=== PATIENT | female | born 1950 | race Caucasian/White ===

== ENCOUNTER → 2017-03-19 | Outpatient (CLI) | payer MEDICARE ==
[2017-03-19 10:34] LABS: ALANINE AMINOTRANSFERASE 41 U/L (9-52); ALBUMIN 4.3 g/dL (3.5-5.0); ALKALINE PHOSPHATASE 94 U/L (38-126); ASPARTATE AMINO TRANSFERASE 22 U/L (14-36); BILIRUBIN,DIRECT 0.4 mg/dL (0.0-0.4); BILIRUBIN,TOTAL 0.5 mg/dL (0.2-1.3); CHOLESTEROL 269.27 mg/dL (0-200); Direct HDL 54 mg/dL (>40); TOTAL PROTEIN 7.1 g/dL (6.3-8.2); TRIGLYCERIDES 254 mg/dL (<150)
[2017-03-19 10:46] LABS: DIRECT LDL 179 mg/dL (<100)
[2017-03-19 10:48] LABS: VLDL CHOLESTEROL 50.8 mg/dL (10-31)
== END ==
LOC: OD 09:06
PROVIDERS: ATTEND Internal Medicine Cardiovascular Disease
DX: E55.9 Vitamin D deficiency, unspecified (principal); E78.00 Pure hypercholesterolemia, unspecified; Z79.899 Other long term (current) drug therapy
CPT/HCPCS: 36415; 80061; 80076; 82306

== ENCOUNTER → 2017-05-20 | Outpatient (CLI) | payer MEDICARE ==
[2017-05-20 10:26] LABS: CHOLESTEROL 191.75 mg/dL (0-200); Direct HDL 54 mg/dL (>40); TRIGLYCERIDES 134 mg/dL (<150)
[2017-05-20 10:43] LABS: DIRECT LDL 114 mg/dL (<100)
== END ==
LOC: OD 08:56
PROVIDERS: ATTEND Internal Medicine Cardiovascular Disease
DX: E78.2 Mixed hyperlipidemia (principal)
CPT/HCPCS: 36415; 80061

== ENCOUNTER → 2017-07-02 | Outpatient (CLI) | payer MEDICARE ==
--- NOTE | 2017-07-02 16:38 | WOMENS IMAGING REPORT ---
EXAM DESCRIPTION: 3D SCREENING MAMMO BILAT COMPLETED DATE/TIME: 07/02/2017 3:29 pm REASON FOR STUDY: ROUTINE SCREENING; Z12.31 Z12.31 ENCNTR SCREEN MAMMOGRAM FOR MALIGNANT NEOPLASM O F ANNE-MARIE COMPARISON: Multiple since 2009 TECHNIQUE: Standard craniocaudal and mediolateral oblique views of each breast recorded using digita l acquisition and breast tomosynthesis. LIMITATIONS: None. FINDINGS: No masses, calcifications or architectural distortion. No areas of suspicion. Read with the assistance of CAD. .[facility] - R2 Cenova Version 1.3 .[facility] Imaging - R2 Cenova Version 1.3 .[facility] - R2 Cenova Version 2.4 .[facility] - R2 Cenova Version 2.4 .[facility] - R2 Industrial Relations Worker Version 9.2 IMPRESSION: NORMAL MAMMOGRAM. BIRADS 1. BREAST DENSITY: a. The breasts are almost entirely fatty. BIRAD: 1 NEGATIVE RECOMMENDATION: ROUTINE SCREENING COMMENT: The patient has been notified of the results by letter per SA requirements. Additional no tification policies are in place for contacting patient with suspicious or incomplete findings. Quality ID #[id number]: The [employer] recommends an annual screening mammogram for women aged 40 years or over. This facility utilizes a reminder system to ensure that all patients receive reminder letters, and/or direct phone calls for appointments. This includes reminders for routine scr eening mammograms, diagnostic mammograms, or other Breast Imaging Interventions when appropriate. Th is patient will be placed in the appropriate reminder system. The [employer] (ACR) has developed recommendations for screening MRI of the breast s in certain patient populations, to be used in conjunction with mammography. Breast MRI surveillanc e may be appropriate for women with more than 20% lifetime risk of developing breast cancer as deter mined by genetic testing, significant family history of the disease, or history of mantle radiation f or Hodgkins Disease. ACR Practice Guidelines 2008. DBT Technology DBT is a type of tomographic mammography. With conventional mammography, overlapping breast tissue ma y make lesions difficult to detect, even with good compression. DBT uses an x-ray tube that rotates a round the breast, taking images at different angles. These images are then combined to create thin sl ices of the breast that the radiologist can view as a 3D reconstruction. The [employer] unit can perform full-field digital mammograms (2D imaging); or DBT (3D imaging); or both, in a combination mode that quickly performs both the mammogram and the tomosynthesis scan while the breast is still compressed. PQRS 6045F: Fluoroscopic imaging is not utilized for breast tomosynthesis. TECHNICAL DOCUMENTATION: FINDING NUMBER: (1) ASSESSMENT: (1) JOB ID: [id number] [employer]- All Rights Reserved
== END ==
LOC: WI 14:50
PROVIDERS: ATTEND Physician Assistant
DX: Z12.31 Encounter for screening mammogram for malignant neoplasm of breast (principal)
CPT/HCPCS: 77063; G0202; 77067

== ENCOUNTER → 2017-07-30 | Outpatient (CLI) | payer MEDICARE | LOC: OD 11:27 | PROVIDERS: ATTEND Internal Medicine Cardiovascular Disease | DX: E55.9 Vitamin D deficiency, unspecified (principal) | CPT/HCPCS: 36415; 82306 ==

== ENCOUNTER → 2017-11-09 | Outpatient (CLI) | payer MEDICARE ==
[2017-11-09 10:23] LABS: CHOLESTEROL 115.79 mg/dL (0-200); TRIGLYCERIDES 160 mg/dL (<150)
[2017-11-09 10:34] LABS: DIRECT LDL 32 mg/dL (<100)
== END ==
LOC: OD 09:19
PROVIDERS: ATTEND Internal Medicine Cardiovascular Disease
DX: E78.2 Mixed hyperlipidemia (principal)
CPT/HCPCS: 36415; 80061

== ENCOUNTER → 2018-01-06 | Outpatient (CLI) | payer MEDICARE ==
--- NOTE | 2018-01-06 18:18 | RADIOLOGY REPORT (SQ) ---
EXAM DESCRIPTION: CT CHEST WITHOUT COMPLETED DATE/TIME: 01/06/2018 1:38 pm REASON FOR STUDY: PLEURAL EFFUSION J43.1 PANLOBULAR EMPHYSEMA COMPARISON: CT chest 06/09/2008 TECHNIQUE: CT scan performed of the chest without intravenous contrast. Images reviewed with lung, soft tissue and bone windows. Reconstructed coronal and sagittal MPR images reviewed. All images st ored on PACS. All CT scanners at this facility use dose modulation, iterative reconstruction, and/or weight based d osing when appropriate to reduce radiation dose to as low as reasonably achievable (ALARA). [facility]: Dose Right [facility]: CareDose [facility]: Dose Right [facility]: Teradose 4D [facility]: StackEngine RADIATION DOSE: CT Rad equipment meets quality standard of care and radiation dose reduction techniq ues were employed. CTDIvol: 17.8 mGy. DLP: 721 mGy-cm. mGy. LIMITATIONS: No technical limitations. FINDINGS: LUNGS AND PLEURA: End-stage appearance of obstructive lung disease with market hyperinflat ion and hyperlucency. No pleural effusion. No pneumothorax. No worrisome pulmonary nodules. HILAR AND MEDIASTINAL STRUCTURES: No adenopathy. Small hiatal hernia. There is circumferential dist al esophageal wall thickening. Consider esophagram for followup HEART AND VASCULAR STRUCTURES: No aneurysm. No pericardial effusion. UPPER ABDOMEN: Clips post cholecystectomy THYROID AND OTHER SOFT TISSUES: No masses. No adenopathy. BONES: Advanced degenerative disc changes at T12-L1, with moderate central canal stenosis on axial im age 54 HARDWARE: None in the chest. OTHER: No other significant findings. IMPRESSION: End-stage appearance of obstructive lung disease Hiatal hernia with distal esophageal wall thickening. Consider esophagram for followup TECHNICAL DOCUMENTATION: JOB ID: [id number] Quality ID # [id number]: Final reports with documentation of one or more dose reduction techniques (e.g., Au tomated exposure control, adjustment of the mA and/or kV according to patient size, use of iterative reconstruction technique) 2010 [employer]- All Rights Reserved Reading location - IP/workstation name: [email or web address]
== END ==
LOC: RAD 13:31
PROVIDERS: ATTEND Internal Medicine Pulmonary Disease
DX: J90 Pleural effusion, not elsewhere classified (principal)
CPT/HCPCS: 71250

== ENCOUNTER 2018-02-12 08:20 | Day surgery (SDC) | payer MEDICARE ==
[~2018-02-12 08:20] MED LIST: DIPHENHYDRAMINE HCL 50 MG/ML VIAL ONE; EPINEPHRINE INJ 1 MG/10 ML DISP.SYRIN ONE; FENTANYL CITRATE INJ/PF 100 MCG/2 ML AMPUL ONE; FLUMAZENIL INJ 0.5 MG/5 ML VIAL ONE; GLUCAGON,HUMAN RECOMB 1 MG INJ ONE; NALOXONE HCL INJ/PF 0.4 MG/1 ML SDV ONE; ONDANSETRON HCL INJ/PF 4 MG/2 ML SDV ONE
[2018-02-12] MEDS: MIDAZOLAM 2 MG/2 ML INJ ONE ×2 (08:40→08:44)
--- NOTE | 2018-02-12 08:50 | Operative Report ---
Operative Report DATE OF SURGERY: 02/12/18 Operative Report: The risks benefits and alternatives of the procedure explained to the patient in detail and informed consent is obtained.A GIF Olympus video scope was inserted into the patient's mouth and hypopharynx, the esophagus is identified intubated and insufflated, the scope was then advanced through the esophagus stomach and duodenum, retroflexion maneuver is done, the esophagus stomach and first and second portions of the duodenum examined PREOPERATIVE DIAGNOSIS: Abnormal thickening of the distal esophagus noted on CT scan. Gastroesophageal reflux disease POSTOPERATIVE DIAGNOSIS: Distal esophageal polyp status post biopsy. Gastritis status post biopsy, bile reflux. Hiatal hernia OPERATION: EGD with biopsy SURGEON: JU SANDY ANESTHESIA: Moderate Sedation - 3 mg of Versed, 25 mcg of fentanyl. Conscious sedation monitoring time 30 minutes. TISSUE REMOVED OR ALTERED: As noted above. There were 2 separate biopsies 1 of the distal esophageal polyp which did not appear to be inflammatory in nature. There was also another smaller polyp in the gastric antrum it was obtained with biopsy to rule out Helicobacter pylori COMPLICATIONS: None. ESTIMATED BLOOD LOSS: None. INTRAOPERATIVE FINDINGS: As discussed above. PROCEDURE: Patient tolerated procedure well. No immediate postprocedure complications are noted. Patient discharged in good condition. Discharge date 02/12/2018. Discharge diet: Regular. Discharge activity: Regular. 2-3 week follow-up to discuss findings. Patient is instructed to call the office or proceed to the emergency room should there be any further problems or questions. We will wait on pathology.
[2018-02-12 09:57] VITALS: BP 121/80
== END 2018-02-12 10:05 | disposition home or self-care (01) ==
LOC: END 08:20
PROVIDERS: ATTEND Internal Medicine Gastroenterology
DX: K29.50 Unspecified chronic gastritis without bleeding (principal); K44.9 Diaphragmatic hernia without obstruction or gangrene; K22.8 Other specified diseases of esophagus; K21.0 Gastro-esophageal reflux disease with esophagitis; M19.90 Unspecified osteoarthritis, unspecified site; E78.5 Hyperlipidemia, unspecified; I10 Essential (primary) hypertension; J43.9 Emphysema, unspecified; G47.30 Sleep apnea, unspecified; Z79.02 Long term (current) use of antithrombotics/antiplatelets; Z79.51 Long term (current) use of inhaled steroids; Z79.899 Other long term (current) drug therapy; Z88.5 Allergy status to narcotic agent
CPT/HCPCS: 43239; 88342 ×2; 88305 ×2; J2250; J3010; J0171; J1200; J1610; J2310; J2405; J3490

== ENCOUNTER → 2018-02-24 | Outpatient (CLI) | payer MEDICARE ==
[2018-02-24 12:32] LABS: HEMATOCRIT 39.5 % (36.0-47.0); HEMOGLOBIN 13.1 g/dL (12.0-15.5); MEAN CORPUSCULAR HEMOGLOBIN 29.5 pg (27.0-33.4); MEAN CORPUSCULAR HGB CONC 33.3 g/dL (32.0-36.0); MEAN CORPUSCULAR VOLUME 89 fl (80-97); PLATELET COUNT 186 10^3/uL (150-450); RED BLOOD COUNT 4.45 10^6/uL (3.72-5.28); RED CELL DISTRIBUTION WIDTH 13.9 % (11.5-14.0); WHITE BLOOD COUNT 6.8 10^3/uL (4.0-10.5)
[2018-02-24 13:01] LABS: ALANINE AMINOTRANSFERASE 26 U/L (9-52); ALBUMIN 3.8 g/dL (3.5-5.0); ALKALINE PHOSPHATASE 80 U/L (38-126); ANION GAP 13 (5-19); ASPARTATE AMINO TRANSFERASE 17 U/L (14-36); BILIRUBIN,DIRECT 0.2 mg/dL (0.0-0.4); BILIRUBIN,TOTAL 0.4 mg/dL (0.2-1.3); BLOOD UREA NITROGEN 24 mg/dL (7-20); CALCIUM 9.4 mg/dL (8.4-10.2); CARBON DIOXIDE 30 mmol/L (22-30); CHLORIDE 103 mmol/L (98-107); GLUCOSE 97 mg/dL (75-110); POTASSIUM 4.4 mmol/L (3.6-5.0); SODIUM 146.3 mmol/L (137-145); TOTAL PROTEIN 6.5 g/dL (6.3-8.2)
== END ==
LOC: OD 11:11
PROVIDERS: ATTEND Internal Medicine Cardiovascular Disease
DX: E78.2 Mixed hyperlipidemia (principal); I10 Essential (primary) hypertension; R06.09 Other forms of dyspnea; E55.9 Vitamin D deficiency, unspecified; E66.9 Obesity, unspecified; Z79.899 Other long term (current) drug therapy
CPT/HCPCS: 36415; 80048; 80076; 82306; 83735; 84443; 85027

== ENCOUNTER 2018-03-17 08:13 | Day surgery (SDC) | payer MEDICARE ==
[~2018-03-17 08:13] MED LIST changes: -DIPHENHYDRAMINE HCL 50 MG/ML VIAL ONE; -EPINEPHRINE INJ 1 MG/10 ML DISP.SYRIN ONE; -FENTANYL CITRATE INJ/PF 100 MCG/2 ML AMPUL ONE; -FLUMAZENIL INJ 0.5 MG/5 ML VIAL ONE; -GLUCAGON,HUMAN RECOMB 1 MG INJ ONE; -NALOXONE HCL INJ/PF 0.4 MG/1 ML SDV ONE; -ONDANSETRON HCL INJ/PF 4 MG/2 ML SDV ONE; +PROPOFOL INJ 200 MG/20 ML VIAL IV ONE
[2018-03-17] MEDS ORDERED: IPRATROPIUM/ALBUTEROL 0.5-2.5 MG/3 ML AMPUL NEB ONE (09:48)
[2018-03-17 11:06] VITALS: BP 141/86
--- NOTE | 2018-03-17 16:05 | Operative Report ---
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 Hiatal hernia. Gastritis OPERATION: EGD with snare polypectomy SURGEON: JU SANDY ANESTHESIA: LMAC TISSUE REMOVED OR ALTERED: As noted above. COMPLICATIONS: None. ESTIMATED BLOOD LOSS: None. INTRAOPERATIVE FINDINGS: As noted above. PROCEDURE: Patient tolerated the procedure well. No immediate postprocedure complications are noted. Patient discharged in good condition. Discharge date 03/17/2018. Discharge diet: Regular. Discharge activity: Regular. 2-3 week follow-up to discuss findings. Six-month surveillance EGD. Wait on the pathology.
== END 2018-03-17 10:55 | disposition home or self-care (01) ==
LOC: END 08:13
PROVIDERS: ATTEND Internal Medicine Gastroenterology
DX: K22.8 Other specified diseases of esophagus (principal); K44.9 Diaphragmatic hernia without obstruction or gangrene; K29.70 Gastritis, unspecified, without bleeding; J44.9 Chronic obstructive pulmonary disease, unspecified; M19.90 Unspecified osteoarthritis, unspecified site; E78.5 Hyperlipidemia, unspecified; J43.9 Emphysema, unspecified; Z86.73 Personal history of transient ischemic attack (TIA), and cerebral infarction without residual deficits; I25.2 Old myocardial infarction; Z87.891 Personal history of nicotine dependence; Z88.5 Allergy status to narcotic agent
CPT/HCPCS: 43251; 88305 ×2; 88312 ×2; 94640; J2704; A9270; 731; J7620

== ENCOUNTER → 2018-04-15 | Outpatient (CLI) | payer MEDICARE ==
[2018-04-15 16:53] LABS: ABSOLUTE BASOPHILS # (AUTO) 0.1 10^3/uL (0.0-0.2); ABSOLUTE EOSINOPHILS # (AUTO) 0.2 10^3/uL (0.0-0.6); ABSOLUTE LYMPHOCYTES (AUTO) 1.2 10^3/uL (0.5-4.7); ABSOLUTE MONOCYTES (AUTO) 0.6 10^3/uL (0.1-1.4); ABSOLUTE NEUT (AUTO) 5.1 10^3/uL (1.7-8.2); BASOPHILS % (AUTO) 0.8 % (0-2); EOSINOPHILS % (AUTO) 2.3 % (0-6); HEMATOCRIT 38.3 % (36.0-47.0); LYMPHOCYTES % (AUTO) 17.3 % (13-45); MEAN CORPUSCULAR HEMOGLOBIN 30.1 pg (27.0-33.4); MEAN CORPUSCULAR HGB CONC 34.1 g/dL (32.0-36.0); MEAN CORPUSCULAR VOLUME 88 fl (80-97); PLATELET COUNT 189 10^3/uL (150-450); RED BLOOD COUNT 4.34 10^6/uL (3.72-5.28); RED CELL DISTRIBUTION WIDTH 13.8 % (11.5-14.0); SEGMENTED NEUTROPHILS % (AUTO) 71.6 % (42-78); TOTAL CELLS COUNTED % (AUTO) 100 %; WHITE BLOOD COUNT 7.1 10^3/uL (4.0-10.5)
--- NOTE | 2018-04-15 17:05 | RADIOLOGY REPORT (SQ) ---
EXAM DESCRIPTION: CHEST PA/LATERAL COMPLETED DATE/TIME: 04/15/2018 4:55 pm REASON FOR STUDY: CHRONIC RESPIRATORY FAILURE WITH HYPOXIA; PANLOBULAR EMPHYSEMA COMPARISON: CT 01/06/2018 EXAM PARAMETERS: NUMBER OF VIEWS: two views TECHNIQUE: Digital Frontal and Lateral radiographic views of the chest acquired. RADIATION DOSE: NA LIMITATIONS: none FINDINGS: LUNGS AND PLEURA: Hyperexpansion of the lungs. No acute infiltrate or effusion. No mass. MEDIASTINUM AND HILAR STRUCTURES: No masses or contour abnormalities. HEART AND VASCULAR STRUCTURES: Heart normal size. No evidence for failure. BONES: No acute findings. HARDWARE: None in the chest. OTHER: No other significant finding. IMPRESSION: Chronic lung changes with no acute cardiopulmonary disease. TECHNICAL DOCUMENTATION: JOB ID: [id number] [employer]- All Rights Reserved Reading location - IP/workstation name: [email or web address]
[2018-04-15 17:18] LABS: ANION GAP 10 (5-19); BLOOD UREA NITROGEN 21 mg/dL (7-20); CALCIUM 9.6 mg/dL (8.4-10.2); CARBON DIOXIDE 31 mmol/L (22-30); CHLORIDE 100 mmol/L (98-107); GLUCOSE 88 mg/dL (75-110); POTASSIUM 4.4 mmol/L (3.6-5.0); SODIUM 140.8 mmol/L (137-145)
== END ==
LOC: OD 16:02
PROVIDERS: ATTEND Internal Medicine Pulmonary Disease
DX: J96.11 Chronic respiratory failure with hypoxia (principal); J43.1 Panlobular emphysema
CPT/HCPCS: 36415; 71046; 80048; 83735; 85025

== ENCOUNTER → 2018-04-16 | Outpatient (CLI) | payer MEDICARE ==
--- NOTE | 2018-04-16 16:24 | XCELERA REPORT ---
[address] [address] Transthoracic Echocardiogram Report Name: VINH HUFFMAN Age: 67 yrs Gender: Female : 1950 Patient Status: Outpatient Patient Location: Study Date: 04/16/2018 08:32 AM Height: 62 in Weight: 236 lb BSA: 2.1 m2 Procedure: A two-dimensional transthoracic echocardiogram with color flow and Doppler was performed. Study Quality: Poor. The study was technically difficult with many images being suboptimal in quality. Reason For Study: SOB History: Shortness of breath. Ordering Physician: DAYRON JACOBS Performed By: Gabriel Covington Interpretation Summary The left ventricle is normal in size. There is normal left ventricular wall thickness. LV EF is 65% Left ventricular systolic function is normal. Doppler measurements suggest impaired left ventricular relaxation, which is associated with grade I/IV or mild diastolic dysfunction Probably normal wall motion. The right ventricle is not well visualized secondary to technical limitations The left atrial size is normal. There is no evidence of mitral valve prolapse. There is no mitral valve stenosis. There is no mitral regurgitation noted. Visually no .No AO valve jet velocity obtained. No aortic regurgitation is present. There is no tricuspid stenosis. There is a trace amount of tricuspid regurgitation Right ventricular systolic pressure is normal. RVSP is 18 to 23 mm of Hg , with RA mean of 5 to 10. The aortic root is not well visualized but is probably normal size. There is no pericardial effusion. MMode/2D Measurements & Calculations RVDd: 1.5 cm LVIDd: 4.7 cm FS: 42.4 % Ao root diam: 2.7 cm IVSd: 0.99 cm LVIDs: 2.7 cm EDV(Teich): 100.1 ml Ao root area: 5.5 cm2 LVPWd: 1.2 cm ESV(Teich): 26.5 ml EF(Teich): 73.5 % LVOT diam: 1.7 cm LVOT area: 2.2 cm2 Doppler Measurements & Calculations MV E max vishal: MV dec slope: Ao V2 max: LV V1 max P.2 cm/sec 345.5 cm/sec2 101.1 cm/sec 3.3 mmHg MV A max vishal: MV dec time: 0.23 secAo max PG: LV V1 max: 92.1 cm/sec 4.1 mmHg 90.4 cm/sec MV E/A: 0.87 CRUZITO(V,D): 2.0 cm2 PA V2 max: TR max vishal: 85.3 cm/sec 177.0 cm/sec PA max P.9 mmHg TR max P.1 mmHg Left Ventricle The left ventricle is normal in size. There is normal left ventricular wall thickness. LV EF is 65%. Left ventricular systolic function is normal. Doppler measurements suggest impaired left ventricular relaxation, which is associated with grade I/IV or mild diastolic dysfunction. Probably normal wall motion. There is no thrombus. Right Ventricle The right ventricle is not well visualized secondary to technical limitations. Atria Right atrium not well visualized secondary to technical limitations. The left atrial size is normal. Mitral Valve There is no evidence of mitral valve prolapse. There is no vegetation seen on the mitral valve. There is no mitral valve stenosis. There is no mitral regurgitation noted. Aortic Valve There is no aortic valvular vegetation. Visually no .No AO valve jet velocity obtained. No aortic regurgitation is present. Tricuspid Valve There is no tricuspid stenosis. There is a trace amount of tricuspid regurgitation. Right ventricular systolic pressure is normal. RVSP is 18 to 23 mm of Hg , with RA mean of 5 to 10. Pulmonic Valve The pulmonic valve is not well visualized. Great Vessels The aortic root is not well visualized but is probably normal size. Effusions There is no pericardial effusion. : DAYRON JACOBS > [place]
== END ==
LOC: SP 08:24
PROVIDERS: ATTEND Internal Medicine Pulmonary Disease
DX: J43.1 Panlobular emphysema (principal); J96.11 Chronic respiratory failure with hypoxia; I07.1 Rheumatic tricuspid insufficiency
CPT/HCPCS: 93306

== ENCOUNTER → 2018-06-17 | Outpatient (CLI) | payer MEDICARE ==
[2018-06-17 12:38] LABS: ARTERIAL BLOOD BASE EXCESS 4.1 mmol/L; ARTERIAL BLOOD H2CO3 1.34 mmol/L (1.05-1.35); ARTERIAL BLOOD O2 SATURATION 97.4 % (94-98); ARTERIAL BLOOD PCO2 44.5 mmHg (35-45); ARTERIAL BLOOD PH 7.43 (7.35-7.45); ARTERIAL BLOOD PO2 94.5 mmHg (80-100); ARTERIAL BLOOD TOTAL CO2 30.4 mmol/L (21-25)
[2018-06-17 12:43] LABS: ARTERIAL BLOOD FIO2 3L
[2018-06-18 14:40] LABS: ANTICHROMATIN AB <0.2 AI (0.0-0.9); CENTROMERE B AB <0.2 AI (0.0-0.9); JO-1 ANTIBODY (ANACOMP) <0.2 AI (0.0-0.9); SJOGREN'S ANTI-SS-B AB <0.2 AI (0.0-0.9); SJOGREN'S SS-A ANTIBODY <0.2 AI (0.0-0.9)
[2018-06-19 08:22] LABS: DNA DOUBLE STRAND ANTIBODY ANA <1 IU/mL (0-9)
== END ==
LOC: LAB 11:18
PROVIDERS: ATTEND Internal Medicine Pulmonary Disease
DX: J96.11 Chronic respiratory failure with hypoxia (principal)
CPT/HCPCS: 36415; 36600; 82803; 85379; 86225; 86235; 86430

== ENCOUNTER 2018-07-30 19:15 | Inpatient (IN) | payer MEDICARE ==
--- NOTE | 2018-07-30 20:06 | RADIOLOGY REPORT (SQ) ---
EXAM DESCRIPTION: CHEST SINGLE VIEW COMPLETED DATE/TIME: 07/30/2018 7:54 pm REASON FOR STUDY: sob COMPARISON: None. EXAM PARAMETERS: NUMBER OF VIEWS: One view. TECHNIQUE: Single frontal radiographic view of the chest acquired. RADIATION DOSE: NA LIMITATIONS: None. FINDINGS: LUNGS AND PLEURA: No opacities, masses or pneumothorax. No pleural effusion. MEDIASTINUM AND HILAR STRUCTURES: No masses. Contour normal. HEART AND VASCULAR STRUCTURES: Heart normal in size. Normal vasculature. BONES: No acute findings. HARDWARE: None in the chest. OTHER: No other significant finding. IMPRESSION: NO ACUTE RADIOGRAPHIC FINDING IN THE CHEST. TECHNICAL DOCUMENTATION: JOB ID: [id number] [employer]- All Rights Reserved Reading location - IP/workstation name: [email or web address]
[2018-07-30] MEDS ORDERED: MAGNESIUM SULFATE/D5W 1 GM/100 ML RTUPB IV ONE (20:13)
[2018-07-30] MEDS ORDERED: METHYLPREDNISOLONE INJ 125 MG/2 ML SDV IV ONE (20:13)
[2018-07-30] MEDS ORDERED: IPRATROPIUM/ALBUTEROL 0.5-2.5 MG/3 ML AMPUL NEB ONE (20:13)
[2018-07-30 20:27] LABS: ABSOLUTE BASOPHILS # (AUTO) 0.1 10^3/uL (0.0-0.2); ABSOLUTE EOSINOPHILS # (AUTO) 0.2 10^3/uL (0.0-0.6); ABSOLUTE LYMPHOCYTES (AUTO) 1.8 10^3/uL (0.5-4.7); ABSOLUTE MONOCYTES (AUTO) 0.5 10^3/uL (0.1-1.4); ABSOLUTE NEUT (AUTO) 4.6 10^3/uL (1.7-8.2); BASOPHILS % (AUTO) 0.9 % (0-2); EOSINOPHILS % (AUTO) 3.3 % (0-6); HEMATOCRIT 39.8 % (36.0-47.0); HEMOGLOBIN 13.2 g/dL (12.0-15.5); LYMPHOCYTES % (AUTO) 24.8 % (13-45); MEAN CORPUSCULAR HEMOGLOBIN 29.4 pg (27.0-33.4); MEAN CORPUSCULAR HGB CONC 33.1 g/dL (32.0-36.0); MEAN CORPUSCULAR VOLUME 89 fl (80-97); MONOCYTES % (AUTO) 7.6 % (3-13); PLATELET COUNT 219 10^3/uL (150-450); RED BLOOD COUNT 4.49 10^6/uL (3.72-5.28); RED CELL DISTRIBUTION WIDTH 14.2 % (11.5-14.0); SEGMENTED NEUTROPHILS % (AUTO) 63.4 % (42-78); TOTAL CELLS COUNTED % (AUTO) 100 %; WHITE BLOOD COUNT 7.3 10^3/uL (4.0-10.5)
[2018-07-30 20:32] LABS: INTERNATIONAL RATION (INR) 0.93
[2018-07-30 20:59] LABS: ALANINE AMINOTRANSFERASE 22 U/L (9-52); ALBUMIN 4.1 g/dL (3.5-5.0); ALKALINE PHOSPHATASE 89 U/L (38-126); ANION GAP 9 (5-19); ASPARTATE AMINO TRANSFERASE 24 U/L (14-36); BILIRUBIN,DIRECT 0.3 mg/dL (0.0-0.4); BILIRUBIN,TOTAL 0.3 mg/dL (0.2-1.3); BLOOD UREA NITROGEN 24 mg/dL (7-20); CALCIUM 9.5 mg/dL (8.4-10.2); CARBON DIOXIDE 31 mmol/L (22-30); CHLORIDE 103 mmol/L (98-107); GLUCOSE 114 mg/dL (75-110); POTASSIUM 3.7 mmol/L (3.6-5.0); SODIUM 142.8 mmol/L (137-145); TOTAL PROTEIN 7.1 g/dL (6.3-8.2)
[2018-07-30] MEDS ORDERED: ONDANSETRON 4 MG TAB.RAPDIS PO PRN (22:56)
[2018-07-30] MEDS ORDERED: MAGNESIUM HYDROXIDE SUSP 30 ML UDCUP PO PRN (22:56)
[2018-07-30] MEDS ORDERED: ONDANSETRON HCL INJ/PF 4 MG/2 ML SDV IV PRN (22:56)
[2018-07-30] MEDS ORDERED: MAG HYDROX/AL HYDROX/SIMETH SUSP 30 ML UDCUP PO PRN (22:56)
[2018-07-30] MEDS ORDERED: ALBUTEROL SULFATE 0.083% NEB 2.5 MG/3 ML AMPUL NEB ONE (22:58)
--- NOTE | 2018-07-30 22:59 | ER Document Report ---
ED General - General Chief Complaint: Breathing Difficulty Stated Complaint: TROUBLE BREATHING Time Seen by Provider: 07/30/18 19:21 TRAVEL OUTSIDE OF THE [place] IN LAST 30 DAYS: No - HPI Patient complains to provider of: Difficulty breathing Notes: Patient with a history of benitez lobar emphysema COPD coming in today for difficulty in breathing. States ongoing for the last 2 days with weather changes worse today patient was brought in by EMS significantly tachypneic upon their arrival received breathing treatments states slight improvement upon my evaluation. Patient is on home oxygen normally at 2 L states she has increased this to 3 L for most of the day. Patient states she is compliant with her BiPAP at night. Denies productive cough states dry denies any fevers or chills denies any recent antibiotics. Patient does have some slight audible wheezes upon my evaluation is resting comfortably slightly tachypneic still - Related Data Allergies/Adverse Reactions: codeine Allergy (Severe, Verified 03/17/18 08:22) "I feel like I'm on fire", nausea, burning feeling all over, Past Medical History - Social History Smoking Status: Former Smoker Frequency of alcohol use: None Drug Abuse: None Family History: Reviewed & Not Pertinent Patient has suicidal ideation: No Patient has homicidal ideation: No - Past Medical History Cardiac Medical History: Reports: Hx Heart Attack - "Silent [place] according to stress test" , Hx Hypertension - "Once in a while but it's generally under control" Denies: Hx Coronary Artery Disease Pulmonary Medical History: Reports: Hx COPD, Hx Pneumonia Denies: Hx Asthma, Hx Bronchitis Neurological Medical History: Denies: Hx Cerebrovascular Accident, Hx Seizures Renal/ Medical History: Denies: Hx Peritoneal Dialysis Musculoskeletal Medical History: Reports Hx Arthritis - Neck Past Surgical History: Reports: Hx Cholecystectomy, Hx Tubal Ligation. Denies: Hx Hysterectomy - Immunizations Hx Diphtheria, Pertussis, Tetanus Vaccination: Yes Hx Pneumococcal Vaccination: 07/22/17 Review of Systems - Review of Systems Constitutional: No symptoms reported EENT: No symptoms reported Cardiovascular: No symptoms reported. denies: Chest pain Respiratory: Cough, Short of breath Gastrointestinal: No symptoms reported. denies: Abdominal pain Genitourinary: No symptoms reported Female Genitourinary: No symptoms reported Musculoskeletal: No symptoms reported Skin: No symptoms reported Hematologic/Lymphatic: No symptoms reported Neurological/Psychological: No symptoms reported -: Yes All other systems reviewed and negative Physical Exam - Vital signs Vitals: Temp Pulse Resp BP Pulse Ox 98.7 F 88 28 H 143/77 H 100 07/30/18 19:16 07/30/18 19:16 07/30/18 19:16 07/30/18 19:16 07/30/18 19:16 Interpretation: Normal, Tachypneic - General General appearance: Appears well, Alert - HEENT Head: Normocephalic, Atraumatic Eyes: Normal Pupils: PERRL - Respiratory Respiratory status: No respiratory distress, Tachypnea Chest status: Nontender Breath sounds: Rhonchi, Wheezing Chest palpation: Normal - Cardiovascular Rhythm: Regular Heart sounds: Normal auscultation Murmur: No - Abdominal Inspection: Normal Distension: No distension Bowel sounds: Normal Tenderness: Nontender Organomegaly: No organomegaly - Back Back: Normal, Nontender - Extremities General upper extremity: Normal inspection, Nontender, Normal color, Normal ROM, Normal temperature General lower extremity: Normal inspection, Nontender, Normal color, Normal ROM, Normal temperature, Normal weight bearing. No: Lisa's sign - Neurological Neuro grossly intact: Yes Cognition: Normal Orientation: AAOx4 Oliva Coma Scale Eye Opening: Spontaneous Oliva Coma Scale Verbal: Oriented Robins Coma Scale Motor: Obeys Commands Oliva Coma Scale Total: 15 Speech: Normal Motor strength normal: LUE, RUE, LLE, RLE Sensory: Normal - Psychological Associated symptoms: Normal affect, Normal mood - Skin Skin Temperature: Warm Skin Moisture: Dry Skin Color: Normal Course - Re-evaluation Re-evalutation: 07/31/18 02:46 Patient symptoms did improve with breathing treatment magnesium administration and Solu-Medrol. We did attempt to ambulate the patient however she quickly became significantly hypoxic with minimal exertion. Because of this and the patient's past medical history will admit the patient for further evaluation of COPD exacerbation discussed with the hospitalist agrees with this plan. - Vital Signs Vital signs: Temp Pulse Resp BP Pulse Ox 98.7 F 97 18 143/77 H 93 07/30/18 19:16 07/31/18 00:30 07/31/18 00:30 07/30/18 19:16 07/31/18 00:48 - Laboratory Result Diagrams: 07/30/18 20:05 07/30/18 20:05 Laboratory results interpreted by me: 07/30/18 07/30/18 20:05 20:05 RDW 14.2 H Carbon Dioxide 31 H BUN 24 H Glucose 114 H Discharge - Discharge Clinical Impression: COPD exacerbation, Morbid obesity with BMI of 40.0-44.9, adult, Acute and chronic respiratory failure with hypoxia, Hiatal hernia with GERD, Hypertension, essential Disposition: ADMITTED INPATIENT Admitting Provider: [facility] Unit Admitted: Medical Floor
[2018-07-30] MEDS ORDERED: ALBUTEROL SULFATE 0.083% NEB 2.5 MG/3 ML AMPUL NEB PRN (23:04)
[2018-07-30] MEDS ORDERED: LABETALOL HCL INJ 20 MG/4 ML DISP.SYRIN IV PRN (23:04)
[2018-07-30] MEDS ORDERED: ACETAMINOPHEN 650 MG SUPP.RECT PR PRN (23:04)
[2018-07-30] MEDS ORDERED: NICOTINE 21 MG/24 HR PATCH.TD24 TD PRN (23:04)
[2018-07-30] MEDS ORDERED: LIDOCAINE 5% (700 MG) TRANSDERMAL ADH..PATCH TOP PRN (23:22)
[2018-07-30 23:47] LABS: FREE T3 3.83 pg/mL (2.77-5.27); FREE T4 (FREE THYROXINE) 1.21 ng/dL (0.78-2.19)
[2018-07-31] MEDS: IPRATROPIUM BROMIDE 0.02% NEB 0.5 MG/2.5 ML AMPUL NEB SCH ×2 (00:29→08:59)
[2018-07-31] MEDS: LEVALBUTEROL HCL NEB 1.25 MG/3 ML AMPUL NEB SCH ×3 (00:30→16:18)
[2018-07-31] MEDS: BUDESONIDE NEB 0.5 MG/2 ML AMPUL NEB SCH ×2 (00:33→08:59)
[2018-07-31 00:45] LABS: VENOUS BLOOD BASE EXCESS 1.2 mmol/L; VENOUS BLOOD PCO2 47.8 mmHg (35-63); VENOUS BLOOD PH 7.37 (7.30-7.42)
--- NOTE | 2018-07-31 00:59 | PDOC H&P ---
History of Present Illness Admission Date/PCP: SYL HAZEL PA-C History of Present Illness: VINH HUFFMAN is a 67 year old female who presented to the emergency room with a 2-day history of rapidly worsening dyspnea. Patient admits that she has been having difficulty with her breathing for the last 2-3 months since she had an EGD performed with a biopsy taken of her hiatal hernia. Since that time she has been unable to sleep in bed she instead must sit up as she develops orthopnea-like symptoms of shortness of breath and general respiratory discomfort when she lies flat. Over the last 2 days she has noted increased wheezing as well as significantly increased dyspnea both at rest and especially with exertion. She denies cough, fever, chills and general malaise. Her dyspnea reached the point where it was severe and she felt that she needed to come to the hospital for further help as her home nebulizer treatments were no longer giving her relief. She admits to numerous similar episodes in the past with exacerbations of her COPD and she has identified exertion or lying flat as the segal components to increasing her symptoms. She has not identified any ameliorating factors for her symptoms other than her usual medications which were not working when she presented to the hospital. In the emergency room she was found to have a normal CBC and a normal chest x-ray but was noted to be significantly hypoxic especially with any exertion. Therefore she was ho spitalized for further evaluation and treatment of her acute exacerbation of COPD. Past Medical History Cardiac Medical History: Reports: Myocardial Infarction - "Silent [place] according to stress test" , Hypertension - "Once in a while but it's generally under co ntrol" Denies: Atrial Fibrillation, Congestive Heart Failure, Coronary Artery Disease Pulmonary Medical History: Reports: Chronic Obstructive Pulmonary Disease (COPD), Pneumonia, Respiratory Failure - Chronic Denies: Asthma, Bronchitis, Tuberculosis EENT Medical History: Reports: None Neurological Medical History: Denies: Hemorrhagic CVA, Ischemic CVA, Seizures Endocrine Medical History: Reports: Obesity Denies: Diabetes Mellitus Type 1, Diabetes Mellitus Type 2, Hyperthyroidism, Hypothyroidism Renal/ Medical History: Denies: Chronic Kidney Disease, Nephrolithiasis Malignancy Medical History: Reports: None GI Medical History: Reports: Gastroesophageal Reflux Disease, Hiatal Hernia Denies: Cirrhosis, Crohn's Disease, Hepatitis, Ulcerative Colitis Musculoskeltal Medical History: Reports: Arthritis - Neck Denies: Gout Skin Medical History: Denies: Eczema, Psoriasis Psychiatric Medical History: Reports: General Anxiety Disorder, Tobacco Dependency Denies: Alcohol Dependency, Substance Abuse Traumatic Medical History: Reports: None Hematology: Denies: Anemia, Bleeding Tendencies Infectious Medical History: Reports: None Past Surgical History Past Surgical History: Reports: Cholecystectomy, Tubal Ligation, Other - Upper endoscopy (EGD) with biopsy Social History Information Source: Patient Lives with: Spouse/Significant other Smoking Status: Former Smoker - Quit times 10 years Frequency of Alcohol Use: Rare Hx Recreational Drug Use: No Drugs: None Hx Prescription Drug Abuse: No - Advance Directive Resuscitation Status: Full Code Surrogate healthcare decision maker:: Family History Family History: Arthritis, CAD, COPD, DM, Hypertension, Malignancy Parental Family History Reviewed: Yes Children Family History Reviewed: No Sibling(s) Family History Reviewed.: Yes Medication/Allergy Home Medications: Albuterol Sulfate [Ventolin Hfa] 1 dose PO Q4 PRN 02/12/18 Atorvastatin Calcium [Lipitor 40 mg Tablet] 1 tab PO DAILY 02/12/18 Buspirone HCl [Buspar 5 mg Tablet] 7.5 mg PO DAILY 02/12/18 Clopidogrel Bisulfate [Clopidogrel] 75 mg PO DAILY 02/12/18 Diclofenac Sodium [Diclo Gel] 1 drop TOP QID 02/12/18 Ergocalciferol (Vitamin D2) [Drisdol 50,000 unit (1.25MG) Capsule] 2,000 mg PO DAILY 02/12/18 Esomeprazole Magnesium [Nexium] 1 tab PO DAILY 02/12/18 Glycopyrrolate/Formoterol Fum [Bevespi Aerosphere Inhaler] 2 inhaler PO TID 02/12/18 Hydrochlorothiazide 1 tab PO DAILY 02/12/18 Lidocaine [Lidocaine Pain Relief] 1 patch TOP DAILY PRN 02/12/18 Methocarbamol 1 tab PO DAILY 02/12/18 Metoprolol Succinate [Toprol Xl] 1 tab PO DAILY 02/12/18 Nystatin/Triamcin [Nystatin-Triamcinolone Cream] 1 dose TOP ACHSP PRN 02/12/18 Prednisone 1 tab PO DAILY PRN 02/12/18 Roflumilast [Daliresp 500 mcg Tablet] 1 tab PO DAILY 02/12/18 Ropinirole HCl [Requip 0.25 mg Tablet] 0.5 mg PO QPM 02/12/18 Venlafaxine HCl [Venlafaxine HCl ER] 1 tab PO DAILY 02/12/18 Allergies/Adverse Reactions: codeine Allergy (Severe, Verified 03/17/18 08:22) "I feel like I'm on fire", nausea, burning feeling all over, Review of Systems Constitutional: ABSENT: anorexia, chills, fever(s) Eyes: ABSENT: visual disturbances, other - Ocular pain Ears: ABSENT: hearing changes, other - Ear pain Nose, Mouth, and Throat: ABSENT: mouth pain, sore throat Cardiovascular: PRESENT: as per HPI, dyspnea on exertion, orthropnea - Must sleep sitting up due to orthopnea. ABSENT: chest pain, edema, palpitations Respiratory: PRESENT: as per HPI, dyspnea. ABSENT: cough Gastrointestinal: ABSENT: abdominal pain, constipation, diarrhea, nausea, vomiting Genitourinary: ABSENT: dysuria, hematuria Musculoskeletal: PRESENT: other - Chronic neck pain due to arthritis. ABSENT: back pain, joint swelling Integumentary: ABSENT: pruritus, rash Neurological: ABSENT: confusion, convulsions, memory loss, tremor(s) Psychiatric: ABSENT: anxiety, depression Endocrine: ABSENT: cold intolerance, heat intolerance Hematologic/Lymphatic: ABSENT: easy bleeding, easy bruising Allergic/Immunologic: PRESENT: seasonal rhinorrhea. ABSENT: other - Insect bite allergy Physical Exam Vital Signs: Temp Pulse Resp BP Pulse Ox 98.7 F 88 28 H 143/77 H 100 07/30/18 19:16 07/30/18 19:16 07/30/18 19:16 07/30/18 19:16 07/30/18 19:16 Intake & Output 07/28/18 07/29/18 07/30/18 23:59 23:59 23:59 Weight 109.3 kg General appearance: PRESENT: no acute distress, cooperative, morbidly obese Head exam: PRESENT: atraumatic, normocephalic Eye exam: PRESENT: conjunctiva pink, EOMI. ABSENT: scleral icterus Ear exam: ABSENT: bleeding, normal external ear exam Mouth exam: PRESENT: dry mucosa, neck supple Neck exam: ABSENT: thyromegaly, tracheal deviation Respiratory exam: PRESENT: accessory muscle use - Use of accessory muscles of respiration to a mild degree at the present time., decreased breath sounds - Moderately decreased breath sounds throughout all hutton consistent with moderate to severe COPD, prolonged expiratory phas - Moderately prolonged expiratory phase, symmetrical, wheezes - End expiratory wheezes are noted mild intensity indicating poor air movement (volume).. ABSENT: rales, retraction, rhonchi, stridor Cardiovascular exam: PRESENT: RRR. ABSENT: clicks, gallop, rubs Pulses: PRESENT: normal radial pulses, normal dorsalis pedis pul GI/Abdominal exam: PRESENT: normal bowel sounds, soft Rectal exam: PRESENT: deferred Extremities exam: ABSENT: joint swelling, pedal edema Musculoskeletal exam: ABSENT: deformity, dislocation Neurological exam: PRESENT: alert, oriented to person, oriented to place, oriented to time, oriented to situation - [id number], CN II-XII grossly intact. ABSENT: motor sensory deficit Psychiatric exam: PRESENT: appropriate affect, normal mood Skin exam: PRESENT: dry, intact, warm. ABSENT: jaundice, rash, urticaria Results Laboratory Results: 07/30/18 20:05 07/30/18 20:05 07/30/18 07/30/18 20:05 20:05 WBC 7.3 RBC 4.49 Hgb 13.2 Hct 39.8 MCV 89 MCH 29.4 MCHC 33.1 RDW 14.2 H Plt Count 219 Seg Neutrophils % 63.4 Lymphocytes % 24.8 Monocytes % 7.6 Eosinophils % 3.3 Basophils % 0.9 Absolute Neutrophils 4.6 Absolute Lymphocytes 1.8 Absolute Monocytes 0.5 Absolute Eosinophils 0.2 Absolute Basophils 0.1 Sodium 142.8 Potassium 3.7 Chloride 103 Carbon Dioxide 31 H Anion Gap 9 BUN 24 H Creatinine 0.62 Est GFR ( Amer) > 60 Est GFR (Non-Af Amer) > 60 Glucose 114 H Calcium 9.5 Magnesium 2.1 Total Bilirubin 0.3 AST 24 ALT 22 Alkaline Phosphatase 89 Total Protein 7.1 Albumin 4.1 07/30/18 20:05 Troponin I < 0.012 Impressions: Chest X-Ray 07/30/18 19:22 IMPRESSION: NO ACUTE RADIOGRAPHIC FINDING IN THE CHEST. Assessment & Plan - Diagnosis (1) Acute and chronic respiratory failure with hypoxia Is this a current diagnosis for this admission?: Yes Plan: Patient's respiratory failure will be treated with supplemental oxygen utilizing BiPAP and other means as needed. Additionally the patient will have a vigorous pulmonary toilet and IV steroids administered. (2) COPD exacerbation Is this a current diagnosis for this admission?: Yes Plan: Patient will be treated with a vigorous pulmonary toilet utilizing Xopenex, Atrovent, Pulmicort and albuterol given via nebulizer. She will also get IV steroids, in the form of Solu-Medrol, and she has been started on an empiric antibiotic therapy with doxycycline. Dr. Myers will be consulted to aid in the patient's management as he sees her on a regular basis as her tongue carrier. (3) GERD with esophagitis Is this a current diagnosis for this admission?: Yes Plan: Patient admits severe esophageal reflux symptoms that keep her from being able to lie flat at night and that she sleeps up in a chair. She describes his symptoms as orthopnea. She will be treated with a GERD regiment utilizing famotidine 10 mg p.o. before meals and at bedtime, sucralfate 1 g p.o. before meals and at bedtime and Reglan 10 mg p.o. before meals and at bedtime. Additionally the patient has significant pain related to her hiatal hernia or esophageal reflux she will receive Nubain 10 mg IV every 3 hours as needed for pain. (4) Hiatal hernia with GERD Is this a current diagnosis for this admission?: Yes Plan: Patient admits severe esophageal reflux symptoms that keep her from being able to lie flat at night and that she sleeps up in a chair. She describes his symptoms as orthopnea. She will be treated with a GERD regiment utilizing famotidine 10 mg p.o. before meals and at bedtime, sucralfate 1 g p.o. before meals and at bedtime and Reglan 10 mg p.o. before meals and at bedtime. Additionally the patient has significant pain related to her hiatal hernia or esophageal reflux she will receive Nubain 10 mg IV every 3 hours as needed for pain. (5) Hypertension, essential Is this a current diagnosis for this admission?: Yes Plan: Patient will be continued on her home regimen of antihypertensive medications. Her blood pressure will be monitored closely during her hospital course and changes in therapy will be made only if needed. (6) Morbid obesity with BMI of 40.0-44.9, adult Is this a current diagnosis for this admission?: Yes Plan: Patient will have a dietary consult during her hospital course with calorie reduction and weight loss goals of her reasonable nature to help to reduce her potential risk for surgery if surgical correction is the only way to control her hiatal hernia and symptoms with esophageal reflux that are causing her to have a very poor quality of life at the present time. - Time Time Spent: 30 to 50 Minutes Critical Time spent with patient: Less than 15 minutes Medications reviewed and adjusted accordingly: Yes Anticipated discharge: Home - Inpatient Certification Based on my medical assessment, after consideration of the patient's comorbidities, presenting symptoms, or acuity I expect that the services needed warrant INPATIENT care.: Yes I certify that my determination is in accordance with my understanding of Medicare's requirements for reasonable and necessary INPATIENT services [42 CFR 412.3e].: Yes Medical Necessity: Failure to Improve With Outpatient Therapy, Need Close Monitoring Due to Risk of Patient Decompensation, Need for Nebulizer Therapy and Monitoring of Response, Risk of Complication if Not Cared For in Hospital
[2018-07-31] MEDS ORDERED: METOCLOPRAMIDE HCL 10 MG TABLET PO ONE (01:15)
[2018-07-31] MEDS ORDERED: SUCRALFATE SUSP 1 GM/10 ML UDCUP PO ONE (01:15)
[2018-07-31] MEDS: DOXYCYCLINE HYCLATE 100 MG TABLET PO SCH ×3 (02:03→17:08)
[2018-07-31] MEDS: METHYLPREDNISOLONE INJ 40 MG/1 ML SDV IV SCH ×3 (04:34→14:38)
[2018-07-31] MEDS: HEPARIN SOD (PORCINE) 5,000 UNIT/ML 1 ML SYRINGE SUBCUT SCH ×3 (05:52→22:15)
[2018-07-31 06:22] LABS: ABSOLUTE LYMPHOCYTES (AUTO) 0.4 10^3/uL (0.5-4.7); ABSOLUTE MONOCYTES (AUTO) 0.1 10^3/uL (0.1-1.4); ABSOLUTE NEUT (AUTO) 6.9 10^3/uL (1.7-8.2); BASOPHILS % (AUTO) 0.1 % (0-2); HEMATOCRIT 37.7 % (36.0-47.0); HEMOGLOBIN 12.7 g/dL (12.0-15.5); LYMPHOCYTES % (AUTO) 5.3 % (13-45); MEAN CORPUSCULAR HEMOGLOBIN 29.7 pg (27.0-33.4); MEAN CORPUSCULAR HGB CONC 33.8 g/dL (32.0-36.0); MEAN CORPUSCULAR VOLUME 88 fl (80-97); MONOCYTES % (AUTO) 1.5 % (3-13); PLATELET COUNT 208 10^3/uL (150-450); RED BLOOD COUNT 4.29 10^6/uL (3.72-5.28); RED CELL DISTRIBUTION WIDTH 14.4 % (11.5-14.0); SEGMENTED NEUTROPHILS % (AUTO) 93.1 % (42-78); TOTAL CELLS COUNTED % (AUTO) 100 %; WHITE BLOOD COUNT 7.5 10^3/uL (4.0-10.5)
[2018-07-31 06:41] LABS: ANION GAP 11 (5-19); BLOOD UREA NITROGEN 19 mg/dL (7-20); CALCIUM 9.5 mg/dL (8.4-10.2); CARBON DIOXIDE 23 mmol/L (22-30); CHLORIDE 106 mmol/L (98-107); GLUCOSE 189 mg/dL (75-110); SODIUM 140.2 mmol/L (137-145)
[2018-07-31 06:53] LABS: ARTERIAL BLOOD BASE EXCESS -0.2 mmol/L; ARTERIAL BLOOD HCO3 24.4 mmol/L (20-24); ARTERIAL BLOOD O2 SATURATION 94.8 % (94-98); ARTERIAL BLOOD PCO2 39.8 mmHg (35-45); ARTERIAL BLOOD PH 7.41 (7.35-7.45); ARTERIAL BLOOD PO2 72.9 mmHg (80-100); ARTERIAL BLOOD TOTAL CO2 25.7 mmol/L (21-25)
[2018-07-31 06:54] LABS: ARTERIAL BLOOD FIO2 2NC
[2018-07-31] MEDS ORDERED: LIDOCAINE 5% (700 MG) TRANSDERMAL ADH..PATCH TOP PRN (07:30)
[2018-07-31] MEDS ORDERED: ONDANSETRON 4 MG TAB.RAPDIS PO PRN (07:35)
--- NOTE | 2018-07-31 07:44 | EKG REPORT ---
SEVERITY:- NORMAL ECG - SINUS RHYTHM : Confirmed by: Garrison Hart MD 31-Jul-2018 07:44:24
--- NOTE | 2018-07-31 07:46 | EKG REPORT ---
SEVERITY:- NORMAL ECG - SINUS RHYTHM : Confirmed by: Garrison Hart MD 31-Jul-2018 07:45:52
[2018-07-31] MEDS ORDERED: SUCRALFATE SUSP 1 GM/10 ML UDCUP PO SCH (08:00)
[2018-07-31] MEDS ORDERED: ONDANSETRON HCL INJ/PF 4 MG/2 ML SDV IV PRN (08:00)
[2018-07-31] MEDS ORDERED: FAMOTIDINE 20 MG TABLET PO SCH (08:00)
[2018-07-31] MEDS: METOPROLOL SUCCINATE 50 MG TAB.SR.24H PO SCH (09:35)
[2018-07-31] MEDS: CLOPIDOGREL BISULFATE 75 MG TABLET PO SCH (09:36)
[2018-07-31] MEDS: HYDROCHLOROTHIAZIDE 12.5 MG TABLET PO SCH (09:36)
[2018-07-31] MEDS: FAMOTIDINE 20 MG TABLET PO SCH ×4 (09:36→22:14)
[2018-07-31] MEDS: VENLAFAXINE HCL 75 MG CAP.SR.24H PO SCH (09:36)
[2018-07-31] MEDS: SUCRALFATE 1 GM TABLET PO SCH ×4 (09:37→22:14)
[2018-07-31] MEDS: DOCUSATE SODIUM 100 MG CAPSULE PO SCH ×2 (09:38→17:06)
[2018-07-31] MEDS: METOCLOPRAMIDE HCL 10 MG TABLET PO SCH ×4 (09:38→22:14)
[2018-07-31] MEDS: ROFLUMILAST 500 MCG TABLET PO SCH (09:39)
[2018-07-31] MEDS ORDERED: ATORVASTATIN CALCIUM 40 MG TABLET PO SCH (10:00)
[2018-07-31] MEDS ORDERED: DICLOFENAC SODIUM TOP SCH (10:00)
[2018-07-31] MEDS ORDERED: (PENDING PHARMACY ID) (Buspirone Hcl [Buspar 5 Mg Tablet] 7.5 MG) PO SCH (10:00)
[2018-07-31] MEDS ORDERED: ROFLUMILAST PO SCH (10:00)
[2018-07-31] MEDS ORDERED: ALBUTEROL SULFATE 0.083% NEB 2.5 MG/3 ML AMPUL NEB PRN (11:20)
[2018-07-31] MEDS ORDERED: NITROGLYCERIN 0.4 MG/TAB 25 TAB/BOTTLE SL PRN (11:24)
[2018-07-31] MEDS ORDERED: (PENDING PHARMACY ID) (Dexlansoprazole [Dexilant 30 Mg Capsule] 30 MG) PO SCH (11:30)
[2018-07-31] MEDS ORDERED: (PENDING PHARMACY ID) (Desloratadine [Clarinex] 5 MG) PO SCH (11:30)
[2018-07-31] MEDS ORDERED: (PENDING PHARMACY ID) (Buspirone Hcl [Buspar 15 Mg Tablet] 7.5 MG) PO SCH (11:30)
[2018-07-31] MEDS: NALBUPHINE HCL INJ 10 MG/1 ML AMPULE IV PRN ×2 (11:30→20:46)
[2018-07-31] MEDS ORDERED: GUAIFENESIN 600 MG TABLET.SA PO ONE (12:45)
[2018-07-31] MEDS ORDERED: LANSOPRAZOLE 30 MG TAB.RAP.DR PO SCH (13:00)
[2018-07-31] MEDS: BUSPIRONE HCL 10 MG TABLET PO SCH ×2 (14:37→22:14)
[2018-07-31] MEDS: PREDNISONE 20 MG TABLET PO SCH ×2 (14:37→22:14)
[2018-07-31] MEDS: LORATADINE 10 MG TABLET PO SCH (14:37)
[2018-07-31] MEDS: LANSOPRAZOLE 15 MG TAB.RAP.DR PO SCH (14:38)
--- NOTE | 2018-07-31 15:02 | PROGRESS NOTE E ---
Progress Note NAME: VINH HUFFMAN : 1950 AGE: 67Y DATE: 07/31/2018 ROOM: 415 SUBJECTIVE: The patient is currently lying in bed. She states she feels a little better than when she came in. The patient states that her symptoms have resolved at rest; however, whenever she gets up to the bathroom she is still quite dyspneic. The patient has been afebrile. Her blood pressures have been in a good range. The patient denies any nausea, vomiting, or diarrhea. No dizziness, fevers, chills. REVIEW OF SYSTEMS: The rest of the review of systems is negative. MEDICATIONS: Medications have been reviewed. OBJECTIVE: GENERAL: The patient is a 67-year-old female who is awake, alert, and oriented to person, place, time, and situation. She is verbal, conversational, does not appear to be in any acute distress. VITAL SIGNS: As follows: Temperature is 99.0, pulse 98, respirations 21, blood pressure is 160/70, oxygen saturation is 96% on 3 L nasal cannula. SKIN: Warm and dry. No rash, not diaphoretic. HEENT: Pupils equal, round, and reactive to light and accommodation. Conjunctivae pink. There is no evidence of JVP. CARDIOVASCULAR: Heart is regular. No rub. CHEST: Diminished, symmetrical, unlabored. ABDOMEN: Obese, soft. No area of focal tenderness. EXTREMITIES: No clubbing, cyanosis, edema. PSYCHIATRIC: Appropriate affect. Pleasant mood. DIAGNOSTICS: Lab values are as follows. Hematology obtained on 07/31/2018: WBCs are 7.5, hemoglobin is 12.7, hematocrit is 37.7, platelet count is 280,000. Chemistry obtained on 07/30/2018: Sodium is 140, potassium is 4.0, chloride is 106, carbon dioxide 23, BUN 19, creatinine 0.54, glucose 189, calcium is 9.5, magnesium is 3.1. IMPRESSION AND PLAN: 1. CHRONIC OBSTRUCTIVE PULMONARY DISEASE EXACERBATION. Will continue the patient's current regimen. Additionally, will add Mucinex. Attempted to obtain sputum specimen as well. Additionally, will add pulmonary toileting and continue steroids and follow. 2. ACUTE ON CHRONIC HYPOXEMIC RESPIRATORY FAILURE. As per #1. 3. GASTROESOPHAGEAL REFLUX DISEASE. Will continue the patient's home medications. 4. HIATAL HERNIA. As per the above. 5. HYPERTENSION. The patient does have labile blood pressures. Will continue the patient's home medications. 6. MORBID OBESITY WITH A BMI OF 44. Of course, encourage weight reduction. DISPOSITION: THE PATIENT IS A FULL CODE. Pending the patient's symptomatology and diagnostic findings, will re-evaluate in the a.m. Time spent on this followup, including assessment/plan, physical examination, patient education, review of records, is 20 minutes. DICTATING PHYSICIAN: BARBARA CHRISTIANSON NP [id number] PHY#: [id number] ID: [id number] JOB#: [id number] ACCT: [id number] cc: >
[2018-07-31] MEDS: NYSTATIN TOPICAL POWDER 15 GM TP SCH (17:08)
[2018-07-31] MEDS ORDERED: ROPINIROLE HCL 0.25 MG TABLET PO SCH (18:00)
[2018-07-31] MEDS: LORAZEPAM INJ 2 MG/1 ML VIAL IV PRN (20:26)
[2018-07-31] MEDS ORDERED: (PENDING PHARMACY ID) (Ropinirole Hcl [Requip] 0.5 MG) PO SCH (22:00)
[2018-07-31] MEDS: GUAIFENESIN 600 MG TABLET.SA PO SCH (22:13)
[2018-07-31] MEDS: ROPINIROLE HCL 0.25 MG TABLET PO SCH (22:14)
[2018-07-31] MEDS: ATORVASTATIN CALCIUM 40 MG TABLET PO SCH (22:14)
[2018-08-01] MEDS: LEVALBUTEROL HCL NEB 1.25 MG/3 ML AMPUL NEB SCH ×3 (00:25→16:45)
[2018-08-01] MEDS: HEPARIN SOD (PORCINE) 5,000 UNIT/ML 1 ML SYRINGE SUBCUT SCH ×3 (05:24→21:17)
[2018-08-01] MEDS: BUSPIRONE HCL 10 MG TABLET PO SCH ×3 (05:24→21:17)
[2018-08-01 05:33] LABS: HEMATOCRIT 38.9 % (36.0-47.0); HEMOGLOBIN 12.8 g/dL (12.0-15.5); MEAN CORPUSCULAR HEMOGLOBIN 29.2 pg (27.0-33.4); MEAN CORPUSCULAR HGB CONC 32.8 g/dL (32.0-36.0); MEAN CORPUSCULAR VOLUME 89 fl (80-97); PLATELET COUNT 215 10^3/uL (150-450); RED BLOOD COUNT 4.37 10^6/uL (3.72-5.28); RED CELL DISTRIBUTION WIDTH 14.6 % (11.5-14.0)
[2018-08-01 05:55] LABS: ABSOLUTE LYMPHOCYTES# (MANUAL) 0.5 10^3/uL (0.5-4.7); ABSOLUTE MONOCYTES # (MANUAL) 0.3 10^3/uL (0.1-1.4); ABSOLUTE NEUTROPHILS# (MANUAL) 15.2 10^3/uL (1.7-8.2); ANION GAP 9 (5-19); ANISOCYTOSIS SLIGHT; BAND NEUTROPHILS % (MANUAL) 1 % (3-5); BASOPHILS % (MANUAL) 0 % (0-2); BLOOD UREA NITROGEN 22 mg/dL (7-20); CALCIUM 9.6 mg/dL (8.4-10.2); CARBON DIOXIDE 28 mmol/L (22-30); CHLORIDE 104 mmol/L (98-107); EOSINOPHILS % (MANUAL) 0 % (0-6); GLUCOSE 137 mg/dL (75-110); LYMPHOCYTES % (MANUAL) 3 % (13-45); MONOCYTES % (MANUAL) 2 % (3-13); POIKILOCYTOSIS 1+; POTASSIUM 4.3 mmol/L (3.6-5.0); SEGMENTED NEUTROPHILS % (MAN) 94 % (42-78); SODIUM 141.2 mmol/L (137-145); TOTAL CELLS COUNTED 100; TOXIC GRANULATION 1+
[2018-08-01 05:56] LABS: BURR CELLS 1+; PLATELET COMMENT ADEQUATE; PLATELET LARGE PRESENT; TEAR DROP CELLS SLIGHT
[2018-08-01] MEDS: LORAZEPAM INJ 2 MG/1 ML VIAL IV PRN ×3 (05:59→17:39)
[2018-08-01] MEDS: NALBUPHINE HCL INJ 10 MG/1 ML AMPULE IV PRN (05:59)
[2018-08-01] MEDS: FAMOTIDINE 20 MG TABLET PO SCH ×4 (07:46→21:17)
[2018-08-01] MEDS: LANSOPRAZOLE 15 MG TAB.RAP.DR PO SCH (07:47)
[2018-08-01] MEDS: SUCRALFATE 1 GM TABLET PO SCH ×4 (07:47→21:16)
[2018-08-01] MEDS: METOCLOPRAMIDE HCL 10 MG TABLET PO SCH ×4 (07:49→21:16)
[2018-08-01] MEDS: LORATADINE 10 MG TABLET PO SCH (09:34)
[2018-08-01] MEDS: VENLAFAXINE HCL 75 MG CAP.SR.24H PO SCH (09:34)
[2018-08-01] MEDS: DOXYCYCLINE HYCLATE 100 MG TABLET PO SCH ×2 (09:34→17:07)
[2018-08-01] MEDS: ROFLUMILAST 500 MCG TABLET PO SCH (09:34)
[2018-08-01] MEDS: PREDNISONE 20 MG TABLET PO SCH ×2 (09:35→21:17)
[2018-08-01] MEDS: GUAIFENESIN 600 MG TABLET.SA PO SCH ×2 (09:35→21:17)
[2018-08-01] MEDS: CLOPIDOGREL BISULFATE 75 MG TABLET PO SCH (09:35)
[2018-08-01] MEDS: HYDROCHLOROTHIAZIDE 12.5 MG TABLET PO SCH (09:35)
[2018-08-01] MEDS: DOCUSATE SODIUM 100 MG CAPSULE PO SCH ×2 (09:35→17:07)
[2018-08-01] MEDS: METOPROLOL SUCCINATE 50 MG TAB.SR.24H PO SCH (09:35)
[2018-08-01] MEDS: NYSTATIN TOPICAL POWDER 15 GM TP SCH ×2 (09:40→17:08)
--- NOTE | 2018-08-01 11:41 | RADIOLOGY REPORT (SQ) ---
EXAM DESCRIPTION: BARIUM SWALLOW ESOPHAGUS COMPLETED DATE/TIME: 08/01/2018 11:21 am REASON FOR STUDY: reflux dysphagia COMPARISON: None. TECHNIQUE: Under fluoroscopic guidance, patient ingested thin barium. Fluoroscopic spot images and r outine radiographic images acquired and stored on PACS. 12 MM BARIUM TABLET GIVEN: No LIMITATIONS: Patient unable to stand, therefore images acquired in semi-erect position. FLUOROSCOPY TIME: 1.32 minutes 9 images saved to PACS. FINDINGS: NEUROMUSCULAR COORDINATION OF SWALLOW: Normal. No aspiration. ESOPHAGEAL MOTILITY: Mild distal esophageal tertiary contractions ESOPHAGEAL MUCOSA: Normal mucosa without masses or ulceration. GASTRO-ESOPHAGEAL JUNCTION: Small hiatal hernia present. Significant gastroesophageal reflux seen, w ith barium refluxing to the level of the clavicles. . NON-GI TRACT STRUCTURES: No significant finding. OTHER: No other significant finding. IMPRESSION: SMALL HIATAL HERNIA WITH SIGNIFICANT GASTROESOPHAGEAL REFLUX. MILD ESOPHAGEAL TERTIARY CONTRACTIONS. COMMENT: NONE Quality ID [id number]: Final reports for procedures using fluoroscopy that document radiation exposure dawood annie, or exposure time and number of fluorographic images (if radiation exposure indices are not avail able) TECHNICAL DOCUMENTATION: JOB ID: [id number] [email or web address]- All Rights Reserved Reading location - IP/workstation name: [email or web address] [id number]
--- NOTE | 2018-08-01 19:57 | PROGRESS NOTE E ---
Progress Note NAME: VINH HUFFMAN : 1950 AGE: 67Y DATE: 08/01/2018 ROOM: 415 SUBJECTIVE: The patient is currently lying in bed. She is taking a nap. She states she feels better today than she did yesterday. Still gets quite winded with activity. The patient did have esophagram today. The patient denies any nausea, vomiting, no diarrhea. The patient has had a strong cough that has not produced any sputum and the patient has remained afebrile. Her blood pressures have been in a good range and the patient has not voiced any other concerns at this time. REVIEW OF SYSTEMS: The rest of the review of systems is negative. MEDICATIONS: Medications have been reviewed. OBJECTIVE: GENERAL: The patient is a 67-year-old female who is awake, alert. She is oriented to person, place, time, and situation. She did go right back to sleep. She does not appear to be distressed. VITAL SIGNS: Temperature is 97.7, pulse 79, respirations 18, blood pressure is 119/68, oxygen saturation is 100% on 3 L nasal cannula. SKIN: Warm and dry. No rash. She is not diaphoretic. She is pale though. HEENT: Pupils are reactive. Mucous membranes appear moist. CARDIOVASCULAR: Heart is normal sinus rhythm. CHEST: Symmetrical, unlabored. ABDOMEN: Obese, soft. EXTREMITIES: There is no edema. PSYCHIATRIC: The patient is pleasant. DIAGNOSTICS: Lab values are as follows: Hematology obtained on 08/01/2018: WBC's are 16.0, hemoglobin is 12.8, hematocrit is 38.9, platelet count is 215,000. Chemistry obtained on 08/01/2018: Sodium is 141, potassium 4.3, chloride is 104, carbon dioxide is 28, BUN 22, creatinine is 0.68, glucose 137, calcium is 9.6, magnesium is 3.5, T4 is 1.21. IMPRESSION AND PLAN: 1. CHRONIC OBSTRUCTIVE PULMONARY DISEASE EXACERBATION. Will continue the patient's current regimen. Mucinex has been added, hoping to get a sputum specimen. The patient tolerated steroids being transitioned to p.o. Will continue pulmonary toileting. 2. ACUTE ON CHRONIC HYPOXEMIA AND RESPIRATORY FAILURE. This is part of number one. 3. GERD. Continue the patient's home medications. She does have evidence of this on esophagram. I do appreciate Pulmonology's help with this. 4. HIATAL HERNIA. This is part of the above. 5. HYPERTENSION. The patient does have some labile blood pressures. We will continue the patient's home medicine. 6. MORBID OBESITY WITH A BMI OF 44. Encouraged weight reduction. DISPOSITION: THE PATIENT IS A FULL CODE. Pending the patient's symptomatology and diagnostic findings, will re-evaluate in the a.m. Time spent on this followup, including assessment, plan, physical examination, patient education, review of records, is 20 minutes. DICTATING PHYSICIAN: BARBARA CHRISTIANSON NP [id number] PHY#: [id number] ID: [id number] JOB#: [id number] ACCT: [id number] cc: >
[2018-08-01] MEDS: ROPINIROLE HCL 0.25 MG TABLET PO SCH (21:16)
[2018-08-01] MEDS: ATORVASTATIN CALCIUM 40 MG TABLET PO SCH (21:17)
--- NOTE | 2018-08-01 23:27 | PDOC CONSULTATION ---
Consultation Consult Date: 08/01/18 History of Present Illness Admission Date/PCP: 07/30/18 23:43 SYL HAZEL PA-C who has been admitted for exacerbation of her copd she has a hx of hiatal hernia and gerd she has chronic complaints of heartburn which causes her to sleep in a chair and cont with ppi's her ugi shows significant reflux in the lying position up to the clavicles. pulmonary medicine requests surgery consult for surgical correction of her hiatal hernia in order to prevent chronic aspiration and worsening of her copd History of Present Illness: VINH HUFFMAN is a 67 year old female Past Medical History Cardiac Medical History: Reports: Myocardial Infarction - "Silent ND according to stress test" , Hypertension - "Once in a while but it's generally under control" Denies: Atrial Fibrillation, Congestive Heart Failure, Coronary Artery Disease Pulmonary Medical History: Reports: Chronic Obstructive Pulmonary Disease (COPD), Pneumonia, Respiratory Failure - Chronic Denies: Asthma, Bronchitis, Tuberculosis EENT Medical History: Reports: None Neurological Medical History: Denies: Hemorrhagic CVA, Ischemic CVA, Seizures Endocrine Medical History: Reports: Obesity Denies: Diabetes Mellitus Type 1, Diabetes Mellitus Type 2, Hyperthyroidism, Hypothyroidism Renal/ Medical History: Denies: Chronic Kidney Disease, Nephrolithiasis Malignancy Medical History: Reports: None GI Medical History: Reports: Gastroesophageal Reflux Disease, Hiatal Hernia Denies: Cirrhosis, Crohn's Disease, Hepatitis, Ulcerative Colitis Musculoskeltal Medical History: Reports: Arthritis - Neck Denies: Gout Skin Medical History: Denies: Eczema, Psoriasis Psychiatric Medical History: Reports: General Anxiety Disorder, Tobacco Dependency Denies: Alcohol Dependency, Substance Abuse Traumatic Medical History: Reports: None Hematology: Denies: Anemia, Bleeding Tendencies Infectious Medical History: Reports: None Past Surgical History Past Surgical History: Reports: Cholecystectomy, Tubal Ligation, Other - Upper endoscopy (EGD) with biopsy Denies: Hysterectomy Social History Lives with: Spouse/Significant other Smoking Status: Former Smoker Number of Years Smokin Last Time Smoked: 07/31/2008 Frequency of Alcohol Use: None Hx Recreational Drug Use: No Drugs: None Hx Prescription Drug Abuse: No - Advance Directive Resuscitation Status: Full Code Family History Family History: Reviewed & Not Pertinent Parental Family History Reviewed: No Children Family History Reviewed: NA Sibling(s) Family History Reviewed.: NA Medication/Allergy Home Medications: Albuterol Sulfate [Ventolin 0.083% Neb 2.5 mg/3 mL Ampul] 3 ml NEB Q8HP PRN 07/31/18 Atorvastatin Calcium [Lipitor 40 mg Tablet] 40 mg PO QHS 07/31/18 Buspirone HCl [Buspar 15 mg Tablet] 7.5 mg PO Q12 07/31/18 Clopidogrel Bisulfate [Plavix 75 mg Tablet] 75 mg PO DAILY 07/31/18 Desloratadine [Clarinex] 5 mg PO DAILY 07/31/18 Dexlansoprazole [Dexilant 30 mg Capsule] 30 mg PO DAILY 07/31/18 Evolocumab [Repatha Syringe] 140 mg IM .EVERY OTHER SAT 07/31/18 Glycopyrrolate/Formoterol Fum [Bevespi Aerosphere Inhaler] 2 puff IH Q12 9 Hydrochlorothiazide [Hydrodiuril 12.5 mg Tablet] 12.5 mg PO DAILY 07/31/18 Metoprolol Succinate [Toprol Xl 50 mg Tab.sr] 50 mg PO DAILY 07/31/18 Nitroglycerin 0.4 mg SL Q5MP PRN 07/31/18 Nystatin [Mycostatin Cream 15 gm] 1 applic TOP BID 07/31/18 Ropinirole HCl [Requip] 0.5 mg PO QHS 07/31/18 Allergies/Adverse Reactions: codeine Allergy (Severe, Verified 03/17/18 08:22) "I feel like I'm on fire", nausea, burning feeling all over, Physical Exam Vital Signs: Temp Pulse Resp BP Pulse Ox 97.7 F 84 21 H 125/73 100 08/01/18 19:27 08/01/18 19:27 08/01/18 19:27 08/01/18 19:27 08/01/18 19:27 Intake & Output 07/31/18 08/01/18 08/02/18 06:59 06:59 06:59 Intake Total 100 620 710 Balance 100 620 710 Weight 109.3 kg 106.3 kg General appearance: PRESENT: mild distress, obese Head exam: PRESENT: atraumatic, normocephalic Neck exam: PRESENT: full ROM Respiratory exam: PRESENT: clear to auscultation phoebe - clear, but very distant breath sounds. Results Laboratory Results: 08/01/18 04:47 08/01/18 04:47 08/01/18 08/01/18 04:47 04:47 WBC 16.0 H D RBC 4.37 Hgb 12.8 Hct 38.9 MCV 89 MCH 29.2 MCHC 32.8 RDW 14.6 H Plt Count 215 Seg Neutrophils % Not Reportable Lymphocytes % Not Reportable Monocytes % Not Reportable Eosinophils % Not Reportable Basophils % Not Reportable Absolute Neutrophils Not Reportable Absolute Lymphocytes Not Reportable Absolute Monocytes Not Reportable Absolute Eosinophils Not Reportable Absolute Basophils Not Reportable Sodium 141.2 Potassium 4.3 Chloride 104 Carbon Dioxide 28 Anion Gap 9 BUN 22 H Creatinine 0.68 Est GFR ( Amer) > 60 Est GFR (Non-Af Amer) > 60 Glucose 137 H Calcium 9.6 Magnesium 2.5 H 07/30/18 07/30/18 20:05 20:05 Troponin I < 0.012 NT-Pro-B Natriuret Pep 74 Impressions: Chest X-Ray 07/30/18 19:22 IMPRESSION: NO ACUTE RADIOGRAPHIC FINDING IN THE CHEST. Esophagus X-Ray 08/01/18 00:00 IMPRESSION: SMALL HIATAL HERNIA WITH SIGNIFICANT GASTROESOPHAGEAL REFLUX. MILD ESOPHAGEAL TERTIARY CONTRACTIONS. Assessment & Plan - Plan Summary Plan Summary: after long discussion with pt and I explained that she does have significant reflux and it would improve after surgical correction of her hiatal hernia and and a reflux procedure she is however high risk of ventilator dependence after surgery and the surgery will probably not improve her copd, although preventing chronic aspiration would decrease chance of acute worsening of the copd also it would benefit her to loose wt prior to surgery, as this will most definitely decrease post op complications I would like to see her in outpatient setting after discharge to discuss further.
[2018-08-02] MEDS: LEVALBUTEROL HCL NEB 1.25 MG/3 ML AMPUL NEB SCH ×3 (00:22→15:54)
[2018-08-02 05:30] LABS: HEMATOCRIT 40.2 % (36.0-47.0); HEMOGLOBIN 13.4 g/dL (12.0-15.5); MEAN CORPUSCULAR HEMOGLOBIN 29.5 pg (27.0-33.4); MEAN CORPUSCULAR HGB CONC 33.2 g/dL (32.0-36.0); MEAN CORPUSCULAR VOLUME 89 fl (80-97); PLATELET COUNT 209 10^3/uL (150-450); RED BLOOD COUNT 4.52 10^6/uL (3.72-5.28); RED CELL DISTRIBUTION WIDTH 14.4 % (11.5-14.0); WHITE BLOOD COUNT 13.4 10^3/uL (4.0-10.5)
[2018-08-02] MEDS: BUSPIRONE HCL 10 MG TABLET PO SCH ×3 (05:53→21:16)
[2018-08-02] MEDS: HEPARIN SOD (PORCINE) 5,000 UNIT/ML 1 ML SYRINGE SUBCUT SCH ×3 (05:53→21:18)
[2018-08-02 06:11] LABS: ABSOLUTE LYMPHOCYTES# (MANUAL) 1.6 10^3/uL (0.5-4.7); ABSOLUTE MONOCYTES # (MANUAL) 0.9 10^3/uL (0.1-1.4); ABSOLUTE NEUTROPHILS# (MANUAL) 10.7 10^3/uL (1.7-8.2); BASOPHILS % (MANUAL) 0 % (0-2); EOSINOPHILS % (MANUAL) 1 % (0-6); LYMPHOCYTES % (MANUAL) 12 % (13-45); MONOCYTES % (MANUAL) 7 % (3-13); NUCLEATED RED BLOOD CELLS 1 /100 WBC (0); PLATELET CLUMPS PRESENT; PLATELET COMMENT ADEQUATE; POLYCHROMASIA SLIGHT; SEGMENTED NEUTROPHILS % (MAN) 80 % (42-78); TOTAL CELLS COUNTED 100
[2018-08-02 07:55] LABS: ANION GAP 6 (5-19); BLOOD UREA NITROGEN 27 mg/dL (7-20); CALCIUM 9.7 mg/dL (8.4-10.2); CARBON DIOXIDE 34 mmol/L (22-30); CHLORIDE 100 mmol/L (98-107); GLUCOSE 110 mg/dL (75-110); POTASSIUM 4.6 mmol/L (3.6-5.0); SODIUM 139.9 mmol/L (137-145)
[2018-08-02] MEDS: METOPROLOL SUCCINATE 50 MG TAB.SR.24H PO SCH (09:14)
[2018-08-02] MEDS: FAMOTIDINE 20 MG TABLET PO SCH ×4 (09:15→21:17)
[2018-08-02] MEDS: HYDROCHLOROTHIAZIDE 12.5 MG TABLET PO SCH (09:15)
[2018-08-02] MEDS: LORATADINE 10 MG TABLET PO SCH (09:15)
[2018-08-02] MEDS: DOCUSATE SODIUM 100 MG CAPSULE PO SCH ×2 (09:15→17:25)
[2018-08-02] MEDS: VENLAFAXINE HCL 75 MG CAP.SR.24H PO SCH (09:16)
[2018-08-02] MEDS: DOXYCYCLINE HYCLATE 100 MG TABLET PO SCH ×2 (09:16→17:26)
[2018-08-02] MEDS: SUCRALFATE 1 GM TABLET PO SCH ×4 (09:16→21:17)
[2018-08-02] MEDS: PREDNISONE 20 MG TABLET PO SCH ×2 (09:16→21:17)
[2018-08-02] MEDS: GUAIFENESIN 600 MG TABLET.SA PO SCH ×2 (09:16→21:16)
[2018-08-02] MEDS: ROFLUMILAST 500 MCG TABLET PO SCH (09:16)
[2018-08-02] MEDS: CLOPIDOGREL BISULFATE 75 MG TABLET PO SCH (09:16)
[2018-08-02] MEDS: METOCLOPRAMIDE HCL 10 MG TABLET PO SCH ×4 (09:17→21:17)
[2018-08-02] MEDS: NYSTATIN TOPICAL POWDER 15 GM TP SCH ×2 (09:17→17:27)
--- NOTE | 2018-08-02 13:17 | PROGRESS NOTE E ---
Progress Note NAME: VINH HUFFMAN : 1950 AGE: 67Y DATE: 08/02/2018 ROOM: 415 SUBJECTIVE: The patient is sitting up, eating breakfast this morning. She states she feels a little better every day. Still does not feel secure enough to go home. The patient stated that she got dyspneic going to the bathroom and feels more comfortable using the bedside commode. The patient denies any nausea, no vomiting, diarrhea. No shortness of breath, dizziness or chest pain. The patient denies a strong cough and denies having any sputum production. The patient has been trying to utilize her pulmonary toilet without much help. The patient has not ambulated in the hallway. The patient has been seen by Surgery regarding her severe reflux. The patient has not voiced any other concerns at this time. REVIEW OF SYSTEMS: The rest of the review of systems is negative. MEDICATIONS: Medications have been reviewed. OBJECTIVE: GENERAL: The patient is a 67-year-old female who is awake, alert. She is oriented to person, place, time, and situation. She does not appear to be in any acute distress. VITAL SIGNS: Temperature is 98.6, pulse 71, respirations 20, blood pressure is 129/58, oxygen saturation is 100% on 3 L nasal cannula. SKIN: Warm and dry. No rash. She is not diaphoretic. HEENT: Pupils are reactive. Conjunctiva is pink. There is no evidence of JVP. CARDIOVASCULAR: Heart is regular. There is no rub. CHEST: Diminished, symmetrical, unlabored. ABDOMEN: Obese, nontender. EXTREMITIES: No clubbing, cyanosis or edema. PSYCHIATRIC: Appropriate affect. Very pleasant mood. DIAGNOSTICS: Lab values are as follows: Hematology obtained on 08/02/2018: WBC's are 30.4, hemoglobin is 30.4, hematocrit is 40.2, platelet count is 209,000. Chemistry obtained on 08/02/2018: Sodium is 139, potassium 4.3, chloride is 100, carbon dioxide is 39, BUN 27, creatinine is 0.67, glucose 110, calcium is 9.7, magnesium is 2.4. IMPRESSION AND PLAN: 1. CHRONIC OBSTRUCTIVE PULMONARY DISEASE EXACERBATION. Will continue the patient's current regimen. Mucinex has been added and she also has pulmonary toileting. The patient's steroids have been transitioned to p.o. Will follow. 2. ACUTE ON CHRONIC HYPOXEMIC RESPIRATORY FAILURE. The patient does not have any documented hypercapnia. Will titrate O2 and follow. 3. GASTROESOPHAGEAL REFLUX DISEASE. The patient is on her home medicines but I did maximize Prevacid. The patient has been seen and evaluated by Surgery. Of course weight loss has been encouraged. 4. HIATAL HERNIA. As per the above. 5. HYPERTENSION. The patient had some labile blood pressures. Continue the current course. 6. MORBID OBESITY WITH A BMI OF 44. Have encouraged weight reduction. DISPOSITION: THE PATIENT IS A FULL CODE. Pending the patient's symptomatology and diagnostic findings, will re-evaluate in the a.m. Time spent on this followup, including assessment, plan, physical examination, patient education, review of records and specialty collaboration, is 25 minutes. DICTATING PHYSICIAN: BARBARA CHRISTIANSON NP [id number] PHY#: [id number] ID: [id number] JOB#: [id number] ACCT: [id number] cc: >
[2018-08-02] MEDS: LORAZEPAM 0.5 MG TABLET PO PRN ×2 (13:43→21:16)
[2018-08-02] MEDS: LANSOPRAZOLE 15 MG TAB.RAP.DR PO SCH (20:01)
[2018-08-02] MEDS: ATORVASTATIN CALCIUM 40 MG TABLET PO SCH (21:16)
[2018-08-02] MEDS: ROPINIROLE HCL 0.25 MG TABLET PO SCH (21:17)
[2018-08-02] MEDS: NALBUPHINE HCL INJ 10 MG/1 ML AMPULE IV PRN (21:18)
[2018-08-03] MEDS: LEVALBUTEROL HCL NEB 1.25 MG/3 ML AMPUL NEB SCH ×3 (00:13→15:55)
[2018-08-03] MEDS: NALBUPHINE HCL INJ 10 MG/1 ML AMPULE IV PRN ×4 (03:10→22:27)
[2018-08-03] MEDS: LORAZEPAM 0.5 MG TABLET PO PRN ×3 (03:10→18:36)
[2018-08-03] MEDS: BUSPIRONE HCL 10 MG TABLET PO SCH ×3 (06:28→22:29)
[2018-08-03] MEDS: HEPARIN SOD (PORCINE) 5,000 UNIT/ML 1 ML SYRINGE SUBCUT SCH ×3 (06:28→22:28)
[2018-08-03] MEDS: METOCLOPRAMIDE HCL 10 MG TABLET PO SCH ×4 (08:13→22:29)
[2018-08-03] MEDS: LANSOPRAZOLE 15 MG TAB.RAP.DR PO SCH (08:13)
[2018-08-03] MEDS: SUCRALFATE 1 GM TABLET PO SCH ×4 (08:13→22:29)
[2018-08-03] MEDS: FAMOTIDINE 20 MG TABLET PO SCH ×4 (08:13→22:29)
[2018-08-03] MEDS: HYDROCHLOROTHIAZIDE 12.5 MG TABLET PO SCH (10:05)
[2018-08-03] MEDS: DOXYCYCLINE HYCLATE 100 MG TABLET PO SCH ×2 (10:05→18:04)
[2018-08-03] MEDS: LORATADINE 10 MG TABLET PO SCH (10:05)
[2018-08-03] MEDS: PREDNISONE 20 MG TABLET PO SCH ×2 (10:06→22:28)
[2018-08-03] MEDS: CLOPIDOGREL BISULFATE 75 MG TABLET PO SCH (10:06)
[2018-08-03] MEDS: GUAIFENESIN 600 MG TABLET.SA PO SCH ×2 (10:06→22:28)
[2018-08-03] MEDS: DOCUSATE SODIUM 100 MG CAPSULE PO SCH ×2 (10:06→18:04)
[2018-08-03] MEDS: VENLAFAXINE HCL 75 MG CAP.SR.24H PO SCH (10:06)
[2018-08-03] MEDS: METOPROLOL SUCCINATE 50 MG TAB.SR.24H PO SCH (10:06)
[2018-08-03] MEDS: NYSTATIN TOPICAL POWDER 15 GM TP SCH ×2 (10:09→18:04)
[2018-08-03] MEDS: ROFLUMILAST 500 MCG TABLET PO SCH (10:20)
[2018-08-03] MEDS ORDERED: LORAZEPAM INJ 2 MG/1 ML VIAL ONE (11:52)
--- NOTE | 2018-08-03 16:01 | RADIOLOGY REPORT (SQ) ---
EXAM DESCRIPTION: CTA CHEST COMPLETED DATE/TIME: 08/03/2018 3:40 pm REASON FOR STUDY: Chest pain, dyspnea, hypoxia COMPARISON: 07/30/2018 TECHNIQUE: CT scan of the chest performed using helical scanning technique with dynamic intravenous contrast injection. Images reviewed with lung, soft tissue and bone windows. Reconstructed coronal and sagittal MPR images reviewed. Additional 3 dimensional post-processing performed to develop Maximal Intensity Projection images (CO P). All images stored on PACS. All CT scanners at this facility use dose modulation, iterative reconstruction, and/or weight based d osing when appropriate to reduce radiation dose to as low as reasonably achievable (ALARA). [facility]: Dose Right [facility]: CareDose [facility]: Dose Right [facility]: Teradose 4D [facility]: Carlypso CONTRAST TYPE AND DOSE: contrast/concentration: Isovue 350.00 mg/ml; Total Contrast Delivered: 79.0 ml; Total Saline Delivered: 80.0 ml Contrast bolus optimized for the pulmonary arteries. Not diagnostic for the aorta. RENAL FUNCTION: GFR > 60. RADIATION DOSE: CT Rad equipment meets quality standard of care and radiation dose reduction techniq ues were employed. CTDIvol: 15.5 - 32.9 mGy. DLP: 623 mGy-cm. . LIMITATIONS: None. FINDINGS: LUNGS AND PLEURA: Pulmonary emphysema. No focal masses. No opacities. AORTA AND GREAT VESSELS: No aneurysm. Contrast bolus not optimized for the aorta. HEART: No pericardial effusion. Moderate to marked coronary artery calcifications. PULMONARY ARTERIES: No emboli visualized in the main pulmonary arteries or the segmental branches. HILAR AND MEDIASTINAL STRUCTURES: No identified masses or abnormal nodes. HARDWARE: None in the chest. UPPER ABDOMEN: No significant findings. Limited exam. THYROID AND OTHER SOFT TISSUES: No masses. No adenopathy. BONES: No acute or significant finding. 3D MIPS: Confirm above findings. OTHER: No other significant finding. IMPRESSION: Pulmonary emphysema. No pulmonary emboli. COMMENT: Quality ID # [id number]: Final reports with documentation of one or more dose reduction techniques (e.g., Automated exposure control, adjustment of the mA and/or kV according to patient size, use of iterative reconstruction technique) TECHNICAL DOCUMENTATION: JOB ID: [id number] [employer]- All Rights Reserved Reading location - IP/workstation name: [email or web address]
--- NOTE | 2018-08-03 16:48 | EKG REPORT ---
SEVERITY:- NORMAL ECG - SINUS RHYTHM : Confirmed by: Garrison Hart MD 03-Aug-2018 16:47:17
--- NOTE | 2018-08-03 18:32 | PROGRESS NOTE E ---
Progress Note NAME: VINH HUFFMAN : 1950 AGE: 67Y DATE: 08/03/2018 ROOM: 415 SUBJECTIVE: The patient is sitting up in bed. She is eating her breakfast. The patient stated that she is not sleeping well at night. She describes herself as at times being very clammy and being hot and cold. The patient denies any nausea, vomiting. No diarrhea. The patient is having no dyspnea at rest. She states that she is profoundly dyspneic with activity though. No other concerns are voiced at this time. BRIEF HISTORY: The patient is a 67-year-old female with a history of chronic obstructive pulmonary disease. The patient presented to the emergency department with a chief complaint of shortness of breath and was found to have wheezes consistent with acute exacerbation COPD. The patient was referred to the hospitalist and was admitted. The patient has been treated with steroids, nebulizers, pulmonary toileting. Was actually covered with doxycycline. The patient's symptoms have improved tremendously; however whenever the patient is doing activity she becomes profoundly dyspneic; not necessarily hypoxic as much as dyspneic. The patient does have a long history of GERD which she feels has contributed to her symptoms. The patient underwent an esophagram and findings as well were consistent with reflux. The patient is actually being seen by Surgery to evaluate surgical intervention and a recommendation has been made for weight reduction. The patient is followed by her dress marker, Dr. Myers. I do appreciate his guidance with this. REVIEW OF SYSTEMS: The rest of the review of systems is negative. MEDICATIONS: Medications have been reviewed. OBJECTIVE: GENERAL: The patient is a 67-year-old female who is awake, alert and oriented to person, place, time, and situation. She is verbal, conversational. She does not appear to be in any acute distress. VITAL SIGNS: Temperature is 97.8, pulse 79, respirations 16, blood pressure is 143/42, oxygen saturation is 96% on room air. SKIN: Warm and dry. No rash. She is not diaphoretic. HEENT: Pupils are equal, round and reactive to light and accommodation. Conjunctiva is pink. There is no evidence of JVP. CARDIOVASCULAR: Heart is regular, no rub. CHEST: Diminished, symmetrical, completely unlabored. ABDOMEN: Obese, soft. EXTREMITIES: There is no edema. PSYCHIATRIC: Appropriate affect, pleasant, mood. DIAGNOSTICS: Lab values are as follows: Hematology obtained on 08/02/2018: WBC's are 30.4, hemoglobin is 38.4, hematocrit is 40.2, platelet count is 209,000. Chemistry obtained on 08/02/2018: Sodium is 139, potassium 4.6, chloride is 100, carbon dioxide is 34, BUN 27, creatinine is 0.67, glucose 110, calcium is 9.7, magnesium is 2.4. IMPRESSION AND PLAN: 1. CHRONIC OBSTRUCTIVE PULMONARY DISEASE EXACERBATION. Continue the patient's current regimen. She has made significant improvement. Have encouraged the patient to participate in activity though. Mucinex has been added as well as pulmonary toileting. Will follow. 2. ACUTE ON CHRONIC HYPOXEMIC RESPIRATORY FAILURE. The patient did not have any documented hypercapnia. Will wean completely from O2. 3. GASTROESOPHAGEAL REFLUX DISEASE. The patient is on PPI therapy. She has been seen and evaluated by Surgery and weight loss has been encouraged. 4. HIATAL HERNIA. This is part of the above. 5. HYPERTENSION. The patient has had some labile blood pressures. Continue her current course though. 6. MORBID OBESITY WITH A BMI OF 44. Have encouraged weight reduction. DISPOSITION: THE PATIENT IS A FULL CODE. Pending the patient's symptomatology and diagnostic findings, will re-evaluate in the a.m. Time spent on this followup, including assessment, plan, physical examination, patient education, review of records, is 25 minutes. DICTATING PHYSICIAN: BARBARA CHRISTIANSON NP [id number] PHY#: [id number] ID: [id number] JOB#: [id number] ACCT: [id number] cc: >
[2018-08-03] MEDS ORDERED: NALBUPHINE HCL INJ 10 MG/1 ML AMPULE ONE (22:12)
[2018-08-03] MEDS: ROPINIROLE HCL 0.25 MG TABLET PO SCH (22:28)
[2018-08-03] MEDS: ATORVASTATIN CALCIUM 40 MG TABLET PO SCH (22:28)
[2018-08-04] MEDS: LEVALBUTEROL HCL NEB 1.25 MG/3 ML AMPUL NEB SCH ×4 (00:03→23:25)
[2018-08-04] MEDS: LORAZEPAM INJ 2 MG/1 ML VIAL IV PRN ×2 (00:44→22:17)
[2018-08-04 05:58] LABS: HEMATOCRIT 40.5 % (36.0-47.0); HEMOGLOBIN 13.5 g/dL (12.0-15.5); MEAN CORPUSCULAR HEMOGLOBIN 29.4 pg (27.0-33.4); MEAN CORPUSCULAR HGB CONC 33.3 g/dL (32.0-36.0); MEAN CORPUSCULAR VOLUME 88 fl (80-97); PLATELET COUNT 208 10^3/uL (150-450); RED BLOOD COUNT 4.58 10^6/uL (3.72-5.28); RED CELL DISTRIBUTION WIDTH 14.5 % (11.5-14.0)
[2018-08-04 06:21] LABS: ANION GAP 7 (5-19); BLOOD UREA NITROGEN 25 mg/dL (7-20); CALCIUM 9.5 mg/dL (8.4-10.2); CARBON DIOXIDE 31 mmol/L (22-30); CHLORIDE 100 mmol/L (98-107); GLUCOSE 121 mg/dL (75-110); POTASSIUM 4.7 mmol/L (3.6-5.0); SODIUM 138.2 mmol/L (137-145)
[2018-08-04] MEDS: LORAZEPAM 0.5 MG TABLET PO PRN (06:51)
[2018-08-04] MEDS: BUSPIRONE HCL 10 MG TABLET PO SCH ×3 (06:51→22:20)
[2018-08-04] MEDS: HEPARIN SOD (PORCINE) 5,000 UNIT/ML 1 ML SYRINGE SUBCUT SCH ×3 (06:51→22:38)
[2018-08-04] MEDS: LANSOPRAZOLE 15 MG TAB.RAP.DR PO SCH (10:05)
[2018-08-04] MEDS: CLOPIDOGREL BISULFATE 75 MG TABLET PO SCH (10:05)
[2018-08-04] MEDS: FAMOTIDINE 20 MG TABLET PO SCH ×4 (10:05→22:21)
[2018-08-04] MEDS: GUAIFENESIN 600 MG TABLET.SA PO SCH ×2 (10:05→22:20)
[2018-08-04] MEDS: VENLAFAXINE HCL 75 MG CAP.SR.24H PO SCH (10:05)
[2018-08-04] MEDS: DOCUSATE SODIUM 100 MG CAPSULE PO SCH ×2 (10:05→17:47)
[2018-08-04] MEDS: PREDNISONE 20 MG TABLET PO SCH ×2 (10:05→22:21)
[2018-08-04] MEDS: HYDROCHLOROTHIAZIDE 12.5 MG TABLET PO SCH (10:05)
[2018-08-04] MEDS: METOCLOPRAMIDE HCL 10 MG TABLET PO SCH ×4 (10:07→22:20)
[2018-08-04] MEDS: ROFLUMILAST 500 MCG TABLET PO SCH (10:07)
[2018-08-04] MEDS: NYSTATIN TOPICAL POWDER 15 GM TP SCH ×2 (10:07→17:49)
[2018-08-04] MEDS: LORATADINE 10 MG TABLET PO SCH (10:07)
[2018-08-04] MEDS: DOXYCYCLINE HYCLATE 100 MG TABLET PO SCH ×2 (10:07→17:48)
[2018-08-04] MEDS: METOPROLOL SUCCINATE 50 MG TAB.SR.24H PO SCH (10:07)
[2018-08-04] MEDS: SUCRALFATE 1 GM TABLET PO SCH ×4 (10:12→22:21)
--- NOTE | 2018-08-04 18:25 | PDOC PROGRESS REPORT ---
Subjective Progress Note for:: 08/04/18 Subjective:: Patient appears to have improved since admission. She reports a wheeze after minimal exertion. She does admit that anxiety plays a role in her breathing. Also seems a hiatal hernia has a lot to do with the dyspnea. She is willing to go to consider rehab. She denies fever or chills. She reports Ativan helps with anxiety. She reports working with physical therapy. Seems that a discharge plan has been placed underway. Some issues with dyspnea with minimal exertion remain. Reason For Visit: ACUTE EXACERBATION OF COPD Physical Exam Vital Signs: Temp Pulse Resp BP Pulse Ox 98.4 F 88 17 134/85 H 100 08/04/18 15:35 08/04/18 15:35 08/04/18 15:35 08/04/18 15:35 08/04/18 15:35 Intake & Output 08/03/18 08/04/18 08/05/18 06:59 06:59 06:59 Intake Total 1052 1687 Balance 1052 1687 Weight 106.1 kg General appearance: PRESENT: no acute distress, cooperative, morbidly obese, other - Older than stated age. Head exam: PRESENT: atraumatic, normocephalic Eye exam: PRESENT: conjunctiva pink, EOMI, PERRLA. ABSENT: scleral icterus Ear exam: PRESENT: normal external ear exam Mouth exam: PRESENT: moist, tongue midline Teeth exam: PRESENT: poor dentation Neck exam: ABSENT: carotid bruit, JVD, lymphadenopathy, thyromegaly Respiratory exam: PRESENT: other - Difficult to auscultate. No significant wheeze appreciated. Unable to determine if crackles or rhonchi present. Cardiovascular exam: PRESENT: RRR, +S1, +S2 GI/Abdominal exam: PRESENT: normal bowel sounds, soft. ABSENT: distended, guarding, mass, organolmegaly, rebound, tenderness Rectal exam: PRESENT: deferred Neurological exam: PRESENT: alert, awake, oriented to person, oriented to place, oriented to time, oriented to situation, CN II-XII grossly intact. ABSENT: motor sensory deficit Psychiatric exam: PRESENT: anxious Results Laboratory Results: 08/04/18 05:26 08/04/18 05:26 08/04/18 08/04/18 05:26 05:26 WBC 8.0 RBC 4.58 Hgb 13.5 Hct 40.5 MCV 88 MCH 29.4 MCHC 33.3 RDW 14.5 H Plt Count 208 Sodium 138.2 Potassium 4.7 Chloride 100 Carbon Dioxide 31 H Anion Gap 7 BUN 25 H Creatinine 0.53 Est GFR ( Amer) > 60 Est GFR (Non-Af Amer) > 60 Glucose 121 H Calcium 9.5 Magnesium 2.4 H 07/30/18 07/30/18 08/03/18 20:05 20:05 14:09 Troponin I < 0.012 < 0.012 NT-Pro-B Natriuret Pep 74 Impressions: Chest X-Ray 07/30/18 19:22 IMPRESSION: NO ACUTE RADIOGRAPHIC FINDING IN THE CHEST. Esophagus X-Ray 08/01/18 00:00 IMPRESSION: SMALL HIATAL HERNIA WITH SIGNIFICANT GASTROESOPHAGEAL REFLUX. MILD ESOPHAGEAL TERTIARY CONTRACTIONS. Chest/Abdomen CTA 08/03/18 00:00 IMPRESSION: Pulmonary emphysema. No pulmonary emboli. Assessment & Plan - Diagnosis (1) Acute and chronic respiratory failure with hypoxia Is this a current diagnosis for this admission?: Yes (2) COPD exacerbation Is this a current diagnosis for this admission?: Yes (3) GERD with esophagitis Is this a current diagnosis for this admission?: Yes (4) Hiatal hernia with GERD Is this a current diagnosis for this admission?: Yes (5) Hypertension, essential Is this a current diagnosis for this admission?: Yes (6) Morbid obesity with BMI of 40.0-44.9, adult Is this a current diagnosis for this admission?: Yes - Time Time Spent with patient: 15-24 minutes - Inpatient Certification Based on my medical assessment, after consideration of the patient's comorbidities, presenting symptoms, or acuity I expect that the services needed warrant INPATIENT care.: Yes I certify that my determination is in accordance with my understanding of Medicare's requirements for reasonable and necessary INPATIENT services [42 CFR 412.3e].: Yes - Plan Summary Plan Summary: 1. COPD exacerbation. Continues to be extremely short of breath with minimal activity. Evaluated by dr heath, who is the patient's outpatient master tax advisor. Here she was started on doxycycline on admission for prophylactic good pneumonia treatment. Since she only has 2 days left of the course, and he does have anti-inflammatory effects will continue at this time. Chest CT showed no signs of pulmonary emboli. 2. Hiatal hernia. [place] to be 1 of the factors playing a role in the chronic dyspnea. Some associated pain. She has been evaluated by general surgery. Continue with PPI for GERD therapy. Weight loss has been encouraged. BMI 44. 3. Patient is willing to consider rehab due to chronic dyspnea. 4. Hypertension seems to be mostly controlled as of recently. Consider increasing scheduled medications as needed. Continue to monitor. Some of the breathing and hypertension seem to be related to anxiety, both of which the patient has reported improved with Ativan. She has however showed concern about being addicted to medications like this. Seems reasonable in this guard.
[2018-08-04] MEDS: ROPINIROLE HCL 0.25 MG TABLET PO SCH (22:20)
[2018-08-04] MEDS: ATORVASTATIN CALCIUM 40 MG TABLET PO SCH (22:23)
[2018-08-04] MEDS ORDERED: NALBUPHINE HCL INJ 10 MG/1 ML AMPULE ONE (22:29)
[2018-08-04] MEDS: NALBUPHINE HCL INJ 10 MG/1 ML AMPULE IV PRN (22:32)
[2018-08-05] MEDS: LORAZEPAM 0.5 MG TABLET PO PRN ×2 (03:20→21:44)
[2018-08-05] MEDS: BUSPIRONE HCL 10 MG TABLET PO SCH ×3 (06:24→21:44)
[2018-08-05] MEDS: HEPARIN SOD (PORCINE) 5,000 UNIT/ML 1 ML SYRINGE SUBCUT SCH ×3 (06:26→21:45)
[2018-08-05] MEDS: FAMOTIDINE 20 MG TABLET PO SCH ×4 (08:46→21:45)
[2018-08-05] MEDS: METOCLOPRAMIDE HCL 10 MG TABLET PO SCH ×4 (08:46→21:44)
[2018-08-05] MEDS: LANSOPRAZOLE 15 MG TAB.RAP.DR PO SCH (08:53)
[2018-08-05] MEDS: DOXYCYCLINE HYCLATE 100 MG TABLET PO SCH ×2 (08:54→17:23)
[2018-08-05] MEDS: SUCRALFATE 1 GM TABLET PO SCH ×4 (08:57→21:43)
[2018-08-05] MEDS: NYSTATIN TOPICAL POWDER 15 GM TP SCH ×3 (09:13→17:23)
[2018-08-05] MEDS: METOPROLOL SUCCINATE 50 MG TAB.SR.24H PO SCH (09:14)
[2018-08-05] MEDS: DOCUSATE SODIUM 100 MG CAPSULE PO SCH ×2 (09:14→17:23)
[2018-08-05] MEDS: LORATADINE 10 MG TABLET PO SCH (09:15)
[2018-08-05] MEDS: PREDNISONE 20 MG TABLET PO SCH (09:15)
[2018-08-05] MEDS: ROFLUMILAST 500 MCG TABLET PO SCH (09:15)
[2018-08-05] MEDS: LEVALBUTEROL HCL NEB 1.25 MG/3 ML AMPUL NEB SCH ×2 (09:44→16:08)
[2018-08-05] MEDS: HYDROCHLOROTHIAZIDE 12.5 MG TABLET PO SCH (10:12)
[2018-08-05] MEDS: GUAIFENESIN 600 MG TABLET.SA PO SCH ×2 (10:12→21:44)
[2018-08-05] MEDS: CLOPIDOGREL BISULFATE 75 MG TABLET PO SCH (10:12)
[2018-08-05] MEDS: VENLAFAXINE HCL 75 MG CAP.SR.24H PO SCH (10:12)
[2018-08-05] MEDS ORDERED: NALBUPHINE HCL INJ 10 MG/1 ML AMPULE ONE ×2 (10:15→21:21)
[2018-08-05] MEDS: NALBUPHINE HCL INJ 10 MG/1 ML AMPULE IV PRN (10:19)
--- NOTE | 2018-08-05 14:38 | PDOC PROGRESS REPORT ---
Addendum entered and electronically signed by YEIMI GRAJEDA PA-C 08/05/18 14:40: Provider Note Provider Note: Currently on 3 L of oxygen via nasal cannula. Utilizes BiPAP/cpap at night Here and at home. Original Note: Subjective Progress Note for:: 08/05/18 Subjective:: Patient continues to report improvements in breathing. She reports breathing has significantly improved since on arrival. She reports walking 15 feet with physical therapy and becoming short of breath yesterday. She also reports being on home O2 for approximately 10 years. She follows with local pulmonology every 4 months. Not previously on daily steroids. Seems that most of her chronic breathing troubles worsened in the last 6 months. They started it worse but same time she was diagnosed with a hiatal hernia. At this time she has no questions or concerns. She is agreeable to rehab. Reason For Visit: ACUTE EXACERBATION OF COPD Physical Exam Vital Signs: Temp Pulse Resp BP Pulse Ox 97.4 F 86 18 114/75 97 08/05/18 11:20 08/05/18 11:20 08/05/18 11:20 08/05/18 11:20 08/05/18 11:20 Intake & Output 08/04/18 08/05/18 08/06/18 06:59 06:59 06:59 Intake Total 1687 990 480 Balance 1687 990 480 Weight 106.2 kg General appearance: PRESENT: no acute distress, morbidly obese, well-developed, well-nourished Head exam: PRESENT: atraumatic Eye exam: PRESENT: conjunctiva pink, EOMI, PERRLA. ABSENT: scleral icterus Ear exam: PRESENT: normal external ear exam Mouth exam: PRESENT: moist, tongue midline Teeth exam: PRESENT: poor dentation Respiratory exam: PRESENT: other - Difficult to auscultate. No appreciable wheeze, crackles, or rhonchi. Prolonged expiratory phase. Cardiovascular exam: PRESENT: RRR, +S1, +S2 Pulses: PRESENT: other - 1+ bilateral lower extremity edema. Chronic. GI/Abdominal exam: PRESENT: normal bowel sounds, soft. ABSENT: distended, guard ing, mass, organolmegaly, rebound, tenderness Rectal exam: PRESENT: deferred Extremities exam: PRESENT: full ROM, other - 1+ symmetrical. Chronic. B ilateral lower extremity edema. Neurological exam: PRESENT: alert, awake, oriented to person, oriented to place, oriented to time, oriented to situation, CN II-XII grossly intact. ABSENT: motor sensory deficit Psychiatric exam: PRESENT: normal mood Results Laboratory Results: 08/04/18 05:26 08/04/18 05:26 07/30/18 07/30/18 08/03/18 20:05 20:05 14:09 Troponin I < 0.012 < 0.012 NT-Pro-B Natriuret Pep 74 Impressions: Chest X-Ray 07/30/18 19:22 IMPRESSION: NO ACUTE RADIOGRAPHIC FINDING IN THE CHEST. Esophagus X-Ray 08/01/18 00:00 IMPRESSION: SMALL HIATAL HERNIA WITH SIGNIFICANT GASTROESOPHAGEAL REFLUX. MILD ESOPHAGEAL TERTIARY CONTRACTIONS. Chest/Abdomen CTA 08/03/18 00:00 IMPRESSION: Pulmonary emphysema. No pulmonary emboli. Assessment & Plan - Diagnosis (1) Acute and chronic respiratory failure with hypoxia Is this a current diagnosis for this admission?: Yes (2) COPD exacerbation Is this a current diagnosis for this admission?: Yes (3) GERD with esophagitis Is this a current diagnosis for this admission?: Yes (4) Hiatal hernia with GERD Is this a current diagnosis for this admission?: Yes (5) Hypertension, essential Is this a current diagnosis for this admission?: Yes (6) Morbid obesity with BMI of 40.0-44.9, adult Is this a current diagnosis for this admission?: Yes - Time Time Spent with patient: 15-24 minutes Medications reviewed and adjusted accordingly: Yes Anticipated discharge: Home - Inpatient Certification Based on my medical assessment, after consideration of the patient's comorbidities, presenting symptoms, or acuity I expect that the services needed warrant INPATIENT care.: Yes I certify that my determination is in accordance with my understanding of Medicare's requirements for reasonable and necessary INPATIENT services [42 CFR 412.3e].: Yes - Plan Summary Plan Summary: 1. COPD exacerbation. Continues to be extremely short of breath with minimal activity. Evaluated by dr heath, who is the patient's outpatient corporate safety director. She follows with them approximately every 4 months as outpatient. Here she was started on doxycycline on admission for prophylactic pneumonia treatment. Since she only has 2 days left of the course, and it does have some anti-inflammatory effects, we will continue at this time. Chest CT showed no signs of pulmonary emboli. Reports being on home oxygen times 10 years. Approximately 2-3 L 24 hours daily. She was not on daily oral steroids. Oral prednisone decreased from 20 mg p.o. twice daily to 10 mg every 8 hours. Plan to wean off as tolerated. 2. Hiatal hernia. [place] to be a contributing factor to worsening chronic dyspnea. Some associated pain. She has been evaluated by general surgery. Continue with PPI for GERD therapy. Weight loss has been encouraged. BMI 44. Unfortunately not a surgical candidate until significant weight loss has been achieved. Discontinue famotidine as patient has been on PPI for longer than 3 days. 3. Disposition: patient is willing to consider rehab due to chronic dyspnea. Overall dyspnea on exertion needs to improve, as steroids need to be weaned as possible so the patient may be discharged safely. 4. Hypertension. Mostly controlled. Intermittent/mild elevations may be related to anxiety, both of which the patient has reported improved with Ativan. She has however showed concern about being addicted to medications like this. Seems reasonable in this guard. 5. Leukocytosis. Resolved. Possibly related to oral steroids + due to stress. No acute findings of pneumonia on chest x-ray on July [address] on August 03.
[2018-08-05] MEDS ORDERED: LIDOCAINE 5% (700 MG) TRANSDERMAL ADH..PATCH TOP PRN (15:30)
[2018-08-05] MEDS: LORAZEPAM INJ 2 MG/1 ML VIAL IV PRN (15:38)
[2018-08-05] MEDS: ROPINIROLE HCL 0.25 MG TABLET PO SCH (21:43)
[2018-08-05] MEDS: PREDNISONE 10 MG TABLET PO SCH (21:43)
[2018-08-05] MEDS: ATORVASTATIN CALCIUM 40 MG TABLET PO SCH (21:44)
[2018-08-05] MEDS ORDERED: PREDNISONE 20 MG TABLET PO SCH (22:00)
[2018-08-06] MEDS: LEVALBUTEROL HCL NEB 1.25 MG/3 ML AMPUL NEB SCH ×3 (00:25→17:18)
[2018-08-06] MEDS: HEPARIN SOD (PORCINE) 5,000 UNIT/ML 1 ML SYRINGE SUBCUT SCH ×3 (05:56→21:53)
[2018-08-06] MEDS: BUSPIRONE HCL 10 MG TABLET PO SCH ×3 (05:56→21:51)
[2018-08-06] MEDS: PREDNISONE 10 MG TABLET PO SCH ×2 (05:56→18:43)
[2018-08-06 06:55] LABS: HEMATOCRIT 44.7 % (36.0-47.0); HEMOGLOBIN 14.7 g/dL (12.0-15.5); MEAN CORPUSCULAR HEMOGLOBIN 28.9 pg (27.0-33.4); MEAN CORPUSCULAR HGB CONC 32.9 g/dL (32.0-36.0); MEAN CORPUSCULAR VOLUME 88 fl (80-97); PLATELET COUNT 265 10^3/uL (150-450); RED BLOOD COUNT 5.09 10^6/uL (3.72-5.28); RED CELL DISTRIBUTION WIDTH 14.5 % (11.5-14.0); WHITE BLOOD COUNT 14.6 10^3/uL (4.0-10.5)
[2018-08-06 07:12] LABS: ANION GAP 8 (5-19); BLOOD UREA NITROGEN 21 mg/dL (7-20); CALCIUM 9.4 mg/dL (8.4-10.2); CARBON DIOXIDE 32 mmol/L (22-30); CHLORIDE 99 mmol/L (98-107); GLUCOSE 147 mg/dL (75-110); SODIUM 139.2 mmol/L (137-145)
[2018-08-06] MEDS ORDERED: EVOLOCUMAB 140 MG IM SCH (07:45)
--- NOTE | 2018-08-06 07:57 | PDOC PROGRESS REPORT ---
Subjective Progress Note for:: 08/06/18 Subjective:: 08/06/2018 patient is comfortably sitting in the bed not in distress pulse ox is 98% on 2 L. Physical therapy is working with the patient patient is on prednisone 10 mg p.o. 3 times daily the recommendation from PT yesterday's [facility] facility for acute rehab. Reason For Visit: ACUTE EXACERBATION OF COPD Physical Exam Vital Signs: Temp Pulse Resp BP Pulse Ox 98.2 F 72 18 130/78 H 98 08/06/18 04:00 08/06/18 04:00 08/06/18 04:00 08/06/18 04:00 08/06/18 04:00 Intake & Output 08/05/18 08/06/18 08/07/18 06:59 06:59 06:59 Intake Total 990 960 Balance 990 960 Weight 106.2 kg 106 kg General appearance: PRESENT: no acute distress Head exam: PRESENT: other Eye exam: PRESENT: PERRLA Mouth exam: PRESENT: moist Neck exam: ABSENT: carotid bruit, JVD, lymphadenopathy, thyromegaly Respiratory exam: PRESENT: decreased breath sounds, unlabored Cardiovascular exam: PRESENT: RRR. ABSENT: diastolic murmur, rubs, systolic murmur GI/Abdominal exam: PRESENT: normal bowel sounds, soft. ABSENT: distended, guarding, mass, organolmegaly, rebound, tenderness Extremities exam: PRESENT: full ROM. ABSENT: calf tenderness, clubbing, pedal edema Neurological exam: PRESENT: alert, awake, oriented to person, oriented to place, oriented to time, oriented to situation, CN II-XII grossly intact. ABSENT: motor sensory deficit Psychiatric exam: PRESENT: appropriate affect, normal mood. ABSENT: homicidal ideation, suicidal ideation Results Laboratory Results: 08/06/18 06:38 08/06/18 06:35 08/06/18 08/06/18 06:35 06:38 WBC 14.6 H RBC 5.09 Hgb 14.7 Hct 44.7 MCV 88 MCH 28.9 MCHC 32.9 RDW 14.5 H Plt Count 265 Sodium 139.2 Potassium 4.0 Chloride 99 Carbon Dioxide 32 H Anion Gap 8 BUN 21 H Creatinine 0.66 Est GFR ( Amer) > 60 Est GFR (Non-Af Amer) > 60 Glucose 147 H Calcium 9.4 Magnesium 2.3 07/30/18 07/30/18 08/03/18 20:05 20:05 14:09 Troponin I < 0.012 < 0.012 NT-Pro-B Natriuret Pep 74 Impressions: Chest X-Ray 07/30/18 19:22 IMPRESSION: NO ACUTE RADIOGRAPHIC FINDING IN THE CHEST. Esophagus X-Ray 08/01/18 00:00 IMPRESSION: SMALL HIATAL HERNIA WITH SIGNIFICANT GASTROESOPHAGEAL REFLUX. MILD ESOPHAGEAL TERTIARY CONTRACTIONS. Chest/Abdomen CTA 08/03/18 00:00 IMPRESSION: Pulmonary emphysema. No pulmonary emboli. Assessment & Plan - Diagnosis (1) Acute and chronic respiratory failure with hypoxia Is this a current diagnosis for this admission?: Yes Plan: 2018 patient was admitted with acute on chronic respiratory failure with hypoxia hypoxia is resolved pulse ox on 2 L is 98% patient is on prednisone 10 mg p.o. every 8 hours getting regular nebulizations that she is getting still getting short of breath with walking less than 20 feet physical therapy is working with the patient recommendation from them yesterday is a retirement facility for acute rehab. (2) COPD exacerbation Is this a current diagnosis for this admission?: Yes Plan: 08/06/2018 patient has history of COPD secondary to smoking on 2.5-3 L oxygen at home. Today pulse ox is 98% on 2 L improving and plan is to continue the present management and decreased p.o. prednisone from 10 mg 3 times daily to twice a day. Plan is to continue the present management. (3) Morbid obesity with BMI of 40.0-44.9, adult Is this a current diagnosis for this admission?: Yes Plan: 08/06/2018 patient is morbidly obese BMI is more than 45. Diet exercise weight loss and lifestyle modification were advised dietary consult was requested. (4) Hypertension, essential Is this a current diagnosis for this admission?: Yes Plan: 08/06/2018 patient has history of hypertension blood pressure today is 130/78 pulse rate is 72 plan is to continue the present management. - Time Time Spent with patient: 15-24 minutes Smoking Cessation Education: over 10 minutes Medications reviewed and adjusted accordingly: Yes Anticipated discharge: Acute Rehab
[2018-08-06] MEDS: HYDROCHLOROTHIAZIDE 12.5 MG TABLET PO SCH (09:13)
[2018-08-06] MEDS: METOPROLOL SUCCINATE 50 MG TAB.SR.24H PO SCH (09:13)
[2018-08-06] MEDS: DOCUSATE SODIUM 100 MG CAPSULE PO SCH ×2 (09:14→18:42)
[2018-08-06] MEDS: GUAIFENESIN 600 MG TABLET.SA PO SCH ×2 (09:14→21:51)
[2018-08-06] MEDS: SUCRALFATE 1 GM TABLET PO SCH ×4 (09:14→21:50)
[2018-08-06] MEDS: ROFLUMILAST 500 MCG TABLET PO SCH (09:14)
[2018-08-06] MEDS: VENLAFAXINE HCL 75 MG CAP.SR.24H PO SCH (09:15)
[2018-08-06] MEDS: DOXYCYCLINE HYCLATE 100 MG TABLET PO SCH ×2 (09:15→18:46)
[2018-08-06] MEDS: LORATADINE 10 MG TABLET PO SCH (09:15)
[2018-08-06] MEDS: METOCLOPRAMIDE HCL 10 MG TABLET PO SCH ×4 (09:17→21:52)
[2018-08-06] MEDS: FAMOTIDINE 20 MG TABLET PO SCH ×4 (09:22→21:48)
[2018-08-06] MEDS: LANSOPRAZOLE 15 MG TAB.RAP.DR PO SCH (09:23)
[2018-08-06] MEDS: NYSTATIN TOPICAL POWDER 15 GM TP SCH ×2 (09:24→18:43)
[2018-08-06] MEDS: CLOPIDOGREL BISULFATE 75 MG TABLET PO SCH (09:31)
[2018-08-06] MEDS ORDERED: (PENDING PHARMACY ID) (Glycopyrrolate/Formoterol Fum [Bevespi Aerosphere Inhaler] 2 PUFF) IH SCH (10:00)
[2018-08-06] MEDS: NALBUPHINE HCL INJ 10 MG/1 ML AMPULE IV PRN (21:48)
[2018-08-06] MEDS: LORAZEPAM 0.5 MG TABLET PO PRN (21:48)
[2018-08-06] MEDS: ATORVASTATIN CALCIUM 40 MG TABLET PO SCH (21:51)
[2018-08-06] MEDS: ROPINIROLE HCL 0.25 MG TABLET PO SCH (21:55)
[2018-08-07] MEDS: LEVALBUTEROL HCL NEB 1.25 MG/3 ML AMPUL NEB SCH ×3 (00:44→15:52)
[2018-08-07] MEDS: BUSPIRONE HCL 10 MG TABLET PO SCH ×3 (05:46→22:32)
[2018-08-07] MEDS: HEPARIN SOD (PORCINE) 5,000 UNIT/ML 1 ML SYRINGE SUBCUT SCH ×3 (05:46→22:28)
[2018-08-07 06:53] LABS: ABSOLUTE BASOPHILS # (AUTO) 0.1 10^3/uL (0.0-0.2); ABSOLUTE EOSINOPHILS # (AUTO) 0.1 10^3/uL (0.0-0.6); ABSOLUTE LYMPHOCYTES (AUTO) 1.7 10^3/uL (0.5-4.7); ABSOLUTE MONOCYTES (AUTO) 0.9 10^3/uL (0.1-1.4); ABSOLUTE NEUT (AUTO) 9.7 10^3/uL (1.7-8.2); BASOPHILS % (AUTO) 0.5 % (0-2); EOSINOPHILS % (AUTO) 1.1 % (0-6); HEMATOCRIT 42.8 % (36.0-47.0); HEMOGLOBIN 14.3 g/dL (12.0-15.5); LYMPHOCYTES % (AUTO) 13.4 % (13-45); MEAN CORPUSCULAR HEMOGLOBIN 29.3 pg (27.0-33.4); MEAN CORPUSCULAR HGB CONC 33.4 g/dL (32.0-36.0); MEAN CORPUSCULAR VOLUME 88 fl (80-97); MONOCYTES % (AUTO) 7.1 % (3-13); PLATELET COUNT 221 10^3/uL (150-450); RED BLOOD COUNT 4.87 10^6/uL (3.72-5.28); RED CELL DISTRIBUTION WIDTH 14.6 % (11.5-14.0); SEGMENTED NEUTROPHILS % (AUTO) 77.9 % (42-78); TOTAL CELLS COUNTED % (AUTO) 100 %; WHITE BLOOD COUNT 12.4 10^3/uL (4.0-10.5)
[2018-08-07 07:11] LABS: ALANINE AMINOTRANSFERASE 75 U/L (9-52); ALBUMIN 3.9 g/dL (3.5-5.0); ALKALINE PHOSPHATASE 107 U/L (38-126); ANION GAP 9 (5-19); ASPARTATE AMINO TRANSFERASE 25 U/L (14-36); BILIRUBIN,DIRECT 0.1 mg/dL (0.0-0.4); BILIRUBIN,TOTAL 0.4 mg/dL (0.2-1.3); BLOOD UREA NITROGEN 24 mg/dL (7-20); CALCIUM 9.6 mg/dL (8.4-10.2); CARBON DIOXIDE 30 mmol/L (22-30); CHLORIDE 97 mmol/L (98-107); GLUCOSE 134 mg/dL (75-110); POTASSIUM 4.2 mmol/L (3.6-5.0); SODIUM 136.4 mmol/L (137-145); TOTAL PROTEIN 6.5 g/dL (6.3-8.2)
[2018-08-07] MEDS: SUCRALFATE 1 GM TABLET PO SCH ×4 (08:00→22:34)
[2018-08-07] MEDS: FAMOTIDINE 20 MG TABLET PO SCH ×4 (08:03→22:30)
[2018-08-07] MEDS: DOCUSATE SODIUM 100 MG CAPSULE PO SCH ×2 (10:03→17:51)
[2018-08-07] MEDS: LORATADINE 10 MG TABLET PO SCH (10:03)
[2018-08-07] MEDS: METOCLOPRAMIDE HCL 10 MG TABLET PO SCH ×4 (10:04→22:31)
[2018-08-07] MEDS: LANSOPRAZOLE 15 MG TAB.RAP.DR PO SCH (10:06)
[2018-08-07] MEDS: HYDROCHLOROTHIAZIDE 12.5 MG TABLET PO SCH (10:07)
[2018-08-07] MEDS: PREDNISONE 10 MG TABLET PO SCH (10:09)
[2018-08-07] MEDS: GUAIFENESIN 600 MG TABLET.SA PO SCH ×2 (10:09→22:34)
[2018-08-07] MEDS: CLOPIDOGREL BISULFATE 75 MG TABLET PO SCH (10:09)
[2018-08-07] MEDS: NYSTATIN TOPICAL POWDER 15 GM TP SCH (10:09)
[2018-08-07] MEDS: VENLAFAXINE HCL 75 MG CAP.SR.24H PO SCH (10:10)
[2018-08-07] MEDS: METOPROLOL SUCCINATE 50 MG TAB.SR.24H PO SCH (10:43)
[2018-08-07] MEDS: ROFLUMILAST 500 MCG TABLET PO SCH (10:46)
--- NOTE | 2018-08-07 11:54 | PDOC PROGRESS REPORT ---
Subjective Progress Note for:: 08/07/18 Subjective:: 08/06/2018 patient is comfortably sitting in the bed not in distress pulse ox is 98% on 2 L. Physical therapy is working with the patient patient is on prednisone 10 mg p.o. 3 times daily the recommendation from PT yesterday's [facility]. 08/07/2018 patient is comfortably sitting at the edge of the bed. is at bedside. Patient is complaining of a lot of pains at the same time she said she is allergic to codeine does not want to take the Percocets and as she does want to take any sides because of the effect on the kidneys and that she does not want to take Tylenol because Tylenol as per her can affect the liver so she wan ts to start on something so he said she can take baclofen so I am going to put her on baclofen. PT is working with the patient but patient is not cooperative. No acute events in the last 24 hours. Patient is afebrile. Reason For Visit: ACUTE EXACERBATION OF COPD Physical Exam Vital Signs: Temp Pulse Resp BP Pulse Ox 98.3 F 79 17 138/69 H 98 08/07/18 07:22 08/07/18 07:40 08/07/18 07:40 08/07/18 07:22 08/07/18 07:40 Intake & Output 08/06/18 08/07/18 08/08/18 06:59 06:59 06:59 Intake Total 960 1020 Balance 960 1020 Weight 106 kg General appearance: PRESENT: no acute distress, other - Morbidly obese female, not in distress Head exam: PRESENT: atraumatic Eye exam: PRESENT: PERRLA Mouth exam: PRESENT: moist Neck exam: ABSENT: carotid bruit, JVD, lymphadenopathy, thyromegaly Respiratory exam: PRESENT: decreased breath sounds, other - No wheezes. few Crackles at the bases. Cardiovascular exam: PRESENT: RRR, tachycardia GI/Abdominal exam: PRESENT: other - Obese abdomen soft nontender bowel sounds are present. Extremities exam: PRESENT: full ROM. ABSENT: calf tenderness, clubbing, pedal edema Neurological exam: PRESENT: alert, awake, oriented to person, oriented to place, oriented to time, oriented to situation, CN II-XII grossly intact. ABSENT: motor sensory deficit Psychiatric exam: PRESENT: appropriate affect, normal mood. ABSENT: homicidal ideation, suicidal ideation Results Laboratory Results: 08/07/18 06:25 08/07/18 06:25 08/07/18 08/07/18 06:25 06:25 WBC 12.4 H RBC 4.87 Hgb 14.3 Hct 42.8 MCV 88 MCH 29.3 MCHC 33.4 RDW 14.6 H Plt Count 221 Seg Neutrophils % 77.9 Lymphocytes % 13.4 Monocytes % 7.1 Eosinophils % 1.1 Basophils % 0.5 Absolute Neutrophils 9.7 H Absolute Lymphocytes 1.7 Absolute Monocytes 0.9 Absolute Eosinophils 0.1 Absolute Basophils 0.1 Sodium 136.4 L Potassium 4.2 Chloride 97 L Carbon Dioxide 30 Anion Gap 9 BUN 24 H Creatinine 0.64 Est GFR ( Amer) > 60 Est GFR (Non-Af Amer) > 60 Glucose 134 H Calcium 9.6 Magnesium 2.1 Total Bilirubin 0.4 AST 25 ALT 75 H Alkaline Phosphatase 107 Total Protein 6.5 Albumin 3.9 07/30/18 07/30/18 08/03/18 20:05 20:05 14:09 Troponin I < 0.012 < 0.012 NT-Pro-B Natriuret Pep 74 Impressions: Chest X-Ray 07/30/18 19:22 IMPRESSION: NO ACUTE RADIOGRAPHIC FINDING IN THE CHEST. Esophagus X-Ray 08/01/18 00:00 IMPRESSION: SMALL HIATAL HERNIA WITH SIGNIFICANT GASTROESOPHAGEAL REFLUX. MILD ESOPHAGEAL TERTIARY CONTRACTIONS. Chest/Abdomen CTA 08/03/18 00:00 IMPRESSION: Pulmonary emphysema. No pulmonary emboli. Assessment & Plan - Diagnosis (1) Acute and chronic respiratory failure with hypoxia Is this a current diagnosis for this admission?: Yes Plan: 2018 patient was admitted with acute on chronic respiratory failure with hypoxia hypoxia is resolved pulse ox on 2 L is 98% patient is on prednisone 10 mg p.o. every 8 hours getting regular nebulizations that she is getting still getting short of breath with walking less than 20 feet physical therapy is working with the patient recommendation from them yesterday is a [facility] for [facility]. 08/07/2018-pulse ox today on 3 L is 98%. Chest x-ray no evidence of pneumonia or fluid overload. Patient is presently on prednisone 10 mg twice a day, scheduled nebulizations. Physical therapy is working with the patient because patient is getting short winded by walking less than 20 feet. Follow-up chest x-ray was requested today. (2) COPD exacerbation Is this a current diagnosis for this admission?: Yes Plan: 08/06/2018 patient has history of COPD secondary to smoking on 2.5-3 L oxygen at home. Today pulse ox is 98% on 2 L improving and plan is to continue the present management and decreased p.o. prednisone from 10 mg 3 times daily to twice a day. Plan is to continue the present management. 08/07/2018 patient has chronic history of COPD secondary to smoking. Seizures 2.5-3 L of oxygen at home. Her oxygen requirements are at baseline now. Plan to decrease the prednisone from 10 mg twice a day to once a day. To continue the nebulizer treatments. (3) Morbid obesity with BMI of 40.0-44.9, adult Is this a current diagnosis for this admission?: Yes Plan: 08/06/2018 patient is morbidly obese BMI is more than 45. Diet exercise weight loss and lifestyle modification were advised dietary consult was requested. 08/07/2018-patient has history of morbid obesity. Diet exercise weight loss and lifestyle modifications are requested. Dietary consult was also requested. (4) Hypertension, essential Is this a current diagnosis for this admission?: Yes Plan: 08/06/2018 patient has history of hypertension blood pressure today is 130/78 pulse rate is 72 plan is to continue the present management. 08/07/2018 blood pressure today is 138/70. Patient is presently on metoprolol 50 mg p.o. daily and hydrochlorothiazide 12.5 mg p.o. daily. I am going to place her on lisinopril 5 mg p.o. daily. (5) Hiatal hernia with GERD Is this a current diagnosis for this admission?: Yes Plan: 08/07/2018 patient has history of hiatal hernia associated with gastric further reflux disease. She is on PPIs. Plan is to continue the present management. - Time Time Spent with patient: 15-24 minutes Medications reviewed and adjusted accordingly: Yes Anticipated discharge: Home
[2018-08-07 12:34] LABS: ALANINE AMINOTRANSFERASE 68 U/L (9-52); ALBUMIN 4.1 g/dL (3.5-5.0); ALKALINE PHOSPHATASE 96 U/L (38-126); ANION GAP 7 (5-19); ASPARTATE AMINO TRANSFERASE 23 U/L (14-36); BILIRUBIN,DIRECT 0.3 mg/dL (0.0-0.4); BILIRUBIN,TOTAL 0.5 mg/dL (0.2-1.3); BLOOD UREA NITROGEN 22 mg/dL (7-20); CALCIUM 9.7 mg/dL (8.4-10.2); CARBON DIOXIDE 33 mmol/L (22-30); CHLORIDE 96 mmol/L (98-107); GLUCOSE 101 mg/dL (75-110); POTASSIUM 3.9 mmol/L (3.6-5.0); SODIUM 136.2 mmol/L (137-145); TOTAL PROTEIN 6.7 g/dL (6.3-8.2)
--- NOTE | 2018-08-07 12:39 | RADIOLOGY REPORT (SQ) ---
EXAM DESCRIPTION: CHEST 2 VIEWS COMPLETED DATE/TIME: 08/07/2018 12:30 pm REASON FOR STUDY: copd COMPARISON: 07/30/2018. NUMBER OF VIEWS: Two view. TECHNIQUE: Frontal and lateral radiographic views of the chest acquired. LIMITATIONS: None. FINDINGS: LUNGS AND PLEURA: No opacities, masses or pneumothorax. No pleural effusion. Attenuated bl ood vessels and flattened suzanne-diaphragms. MEDIASTINUM AND HILAR STRUCTURES: No masses. No contour abnormalities. HEART AND VASCULAR STRUCTURES: Heart normal in size and contour. No evidence for failure. BONES: No acute findings. HARDWARE: None in the chest. OTHER: No other significant finding. IMPRESSION: COPD. NO ACUTE RADIOGRAPHIC FINDING IN THE CHEST. TECHNICAL DOCUMENTATION: JOB ID: [id number] [employer]- All Rights Reserved Reading location - IP/workstation name: [email or web address]
[2018-08-07] MEDS: ACETAMINOPHEN 325 MG TABLET PO PRN ×2 (14:43→22:32)
--- NOTE | 2018-08-07 14:49 | PDOC CONSULTATION ---
Consultation Consult Date: 08/01/18 Attending physician:: HANNAH SARMIENTO Consult reason:: Acute on chronic respiratory failure History of Present Illness Admission Date/PCP: 07/30/18 23:43 SYL HAZEL PA-C Patient complains of: COPD exacerbation History of Present Illness: VINH HUFFMAN is a 67 year old female who is seen in our office on a regular basis. She complains of increasing shortness of breath. She is concerned that her hiatal hernia is making her breathing worse. Patient was in our office 06/17/2018 for Spriometry for surgical clearance Her FEV1 was .72 L 39% of predicted. FEV1/FVC 41.95 L 59% of predicted FEF 25-75% .28 L 13%. Past Medical History Cardiac Medical History: Reports: Myocardial Infarction - "Silent [place] according to stress test" , Hypertension - "Once in a while but it's generally under control" Denies: Atrial Fibrillation, Congestive Heart Failure, Coronary Artery Disease Pulmonary Medical History: Reports: Chronic Obstructive Pulmonary Disease (COPD), Pneumonia, Respiratory Failure - Chronic Denies: Asthma, Bronchitis, Tuberculosis EENT Medical History: Reports: None Neurological Medical History: Denies: Hemorrhagic CVA, Ischemic CVA, Seizures Endocrine Medical History: Reports: Obesity Denies: Diabetes Mellitus Type 1, Diabetes Mellitus Type 2, Hyperthyroidism, Hypothyroidism Renal/ Medical History: Denies: Chronic Kidney Disease, Nephrolithiasis Malignancy Medical History: Reports: None GI Medical History: Reports: Gastroesophageal Reflux Disease, Hiatal Hernia Denies: Cirrhosis, Crohn's Disease, Hepatitis, Ulcerative Colitis Musculoskeltal Medical History: Reports: Arthritis - Neck Denies: Gout Skin Medical History: Denies: Eczema, Psoriasis Psychiatric Medical History: Reports: General Anxiety Disorder, Tobacco Dependency Denies: Alcohol Dependency, Substance Abuse Traumatic Medical History: Reports: None Hematology: Denies: Anemia, Bleeding Tendencies Infectious Medical History: Reports: None Past Surgical History Past Surgical History: Reports: Cholecystectomy, Tubal Ligation, Other - Upper endoscopy (EGD) with biopsy Denies: Hysterectomy Social History Lives with: Spouse/Significant other Smoking Status: Former Smoker Number of Years Smokin Last Time Smoked: 07/31/2008 Frequency of Alcohol Use: None Hx Recreational Drug Use: No Drugs: None Hx Prescription Drug Abuse: No - Advance Directive Resuscitation Status: Full Code Family History Family History: Reviewed & Not Pertinent Medication/Allergy Home Medications: Albuterol Sulfate [Ventolin 0.083% Neb 2.5 mg/3 mL Ampul] 3 ml NEB Q8HP PRN 07/31/18 Atorvastatin Calcium [Lipitor 40 mg Tablet] 40 mg PO QHS 07/31/18 Buspirone HCl [Buspar 15 mg Tablet] 7.5 mg PO Q12 07/31/18 Clopidogrel Bisulfate [Plavix 75 mg Tablet] 75 mg PO DAILY 07/31/18 Desloratadine [Clarinex] 5 mg PO DAILY 07/31/18 Dexlansoprazole [Dexilant 30 mg Capsule] 30 mg PO DAILY 07/31/18 Evolocumab [Repatha Syringe] 140 mg IM .EVERY OTHER SAT 07/31/18 Glycopyrrolate/Formoterol Fum [Bevespi Aerosphere Inhaler] 2 puff IH Q12 07/31/18 Hydrochlorothiazide [Hydrodiuril 12.5 mg Tablet] 12.5 mg PO DAILY 07/31/18 Metoprolol Succinate [Toprol Xl 50 mg Tab.sr] 50 mg PO DAILY 07/31/18 Nitroglycerin 0.4 mg SL Q5MP PRN 07/31/18 Nystatin [Mycostatin Cream 15 gm] 1 applic TOP BID 07/31/18 Ropinirole HCl [Requip] 0.5 mg PO QHS 07/31/18 Allergies/Adverse Reactions: codeine Allergy (Severe, Verified 03/17/18 08:22) "I feel like I'm on fire", nausea, burning feeling all over, Review of Systems Constitutional: PRESENT: fatigue, headache(s) Eyes: ABSENT: visual disturbances Ears: ABSENT: hearing changes Cardiovascular: PRESENT: dyspnea on exertion, orthropnea Respiratory: PRESENT: cough, dyspnea Gastrointestinal: PRESENT: bloating, heartburn. ABSENT: dysphagia Psychiatric: PRESENT: anxiety Physical Exam Vital Signs: Temp Pulse Resp BP Pulse Ox 97.8 F 95 16 143/91 H 96 08/02/18 12:00 08/02/18 12:00 08/02/18 12:00 08/02/18 12:00 08/02/18 12:00 Intake & Output 08/01/18 08/02/18 08/03/18 06:59 06:59 06:59 Intake Total 620 982 Balance 620 982 Weight 106.3 kg 107.1 kg General appearance: PRESENT: cooperative, morbidly obese, well-nourished Mouth exam: PRESENT: moist, neck supple, tongue midline Neck exam: ABSENT: tenderness, tracheal deviation, tracheostomy Respiratory exam: PRESENT: decreased breath sounds, prolonged expiratory phas Cardiovascular exam: PRESENT: RRR, +S1, +S2 Pulses: PRESENT: normal radial pulses, normal dorsalis pedis pul GI/Abdominal exam: PRESENT: soft. ABSENT: tenderness Extremities exam: ABSENT: clubbing, pedal edema Musculoskeletal exam: PRESENT: ambulatory Neurological exam: PRESENT: alert, awake, oriented to person, oriented to time, oriented to situation Psychiatric exam: PRESENT: anxious Focused psych exam: PRESENT: restlessness Skin exam: PRESENT: normal color, warm Results Laboratory Results: 08/02/18 04:43 08/02/18 06:34 08/02/18 08/02/18 08/02/18 04:43 04:43 06:34 WBC 13.4 H RBC 4.52 Hgb 13.4 Hct 40.2 MCV 89 MCH 29.5 MCHC 33.2 RDW 14.4 H Plt Count 209 Seg Neutrophils % Not Reportable Lymphocytes % Not Reportable Monocytes % Not Reportable Eosinophils % Not Reportable Basophils % Not Reportable Absolute Neutrophils Not Reportable Absolute Lymphocytes Not Reportable Absolute Monocytes Not Reportable Absolute Eosinophils Not Reportable Absolute Basophils Not Reportable Sodium Cancelled 139.9 Potassium Cancelled 4.6 Chloride Cancelled 100 Carbon Dioxide Cancelled 34 H Anion Gap Cancelled 6 BUN Cancelled 27 H Creatinine Cancelled 0.67 Est GFR ( Amer) Cancelled > 60 Est GFR (Non-Af Amer) Cancelled > 60 Glucose Cancelled 110 Calcium Cancelled 9.7 Magnesium Cancelled 2.4 H 07/30/18 07/30/18 20:05 20:05 Troponin I < 0.012 NT-Pro-B Natriuret Pep 74 Impressions: Chest X-Ray 07/30/18 19:22 IMPRESSION: NO ACUTE RADIOGRAPHIC FINDING IN THE CHEST. Esophagus X-Ray 08/01/18 00:00 IMPRESSION: SMALL HIATAL HERNIA WITH SIGNIFICANT GASTROESOPHAGEAL REFLUX. MILD ESOPHAGEAL TERTIARY CONTRACTIONS. Assessment & Plan - Diagnosis (1) Acute and chronic respiratory failure with hypoxia Is this a current diagnosis for this admission?: Yes Plan: continue supplemental oxygen and current nebulizer therapy. (2) COPD exacerbation Is this a current diagnosis for this admission?: Yes Plan: continue supplemental oxygen and nebulizer therapy Xopenex 1.25 mg/3ml Q8 (3) Hiatal hernia with GERD Is this a current diagnosis for this admission?: Yes Plan: surgical consult (4) Morbid obesity with BMI of 40.0-44.9, adult Is this a current diagnosis for this admission?: Yes Plan: nutrition consult
[2018-08-07] MEDS: LORAZEPAM 0.5 MG TABLET PO PRN ×2 (14:54→22:30)
[2018-08-07] MEDS: BACLOFEN 10 MG TABLET PO PRN ×2 (14:54→22:34)
--- NOTE | 2018-08-07 15:13 | PDOC PROGRESS REPORT ---
Subjective Progress Note for:: 08/04/18 Subjective:: patient complains of increasing shortness of breath at rest and during ADL's . Patient very anxious today about her breathing problems. Discussed Zanex for home use for anxiety. Reason For Visit: ACUTE EXACERBATION OF COPD Physical Exam Vital Signs: Temp Pulse Resp BP Pulse Ox 98.3 F 79 17 138/69 H 98 08/07/18 07:22 08/07/18 07:40 08/07/18 07:40 08/07/18 07:22 08/07/18 07:40 Intake & Output 08/06/18 08/07/18 08/08/18 06:59 06:59 06:59 Intake Total 960 1020 Balance 960 1020 Weight 106 kg General appearance: PRESENT: morbidly obese Head exam: PRESENT: normocephalic Results Laboratory Results: 08/07/18 06:25 08/07/18 12:07 08/07/18 08/07/18 08/07/18 06:25 06:25 12:07 WBC 12.4 H RBC 4.87 Hgb 14.3 Hct 42.8 MCV 88 MCH 29.3 MCHC 33.4 RDW 14.6 H Plt Count 221 Seg Neutrophils % 77.9 Lymphocytes % 13.4 Monocytes % 7.1 Eosinophils % 1.1 Basophils % 0.5 Absolute Neutrophils 9.7 H Absolute Lymphocytes 1.7 Absolute Monocytes 0.9 Absolute Eosinophils 0.1 Absolute Basophils 0.1 Sodium 136.4 L 136.2 L Potassium 4.2 3.9 Chloride 97 L 96 L Carbon Dioxide 30 33 H Anion Gap 9 7 BUN 24 H 22 H Creatinine 0.64 0.67 Est GFR ( Amer) > 60 > 60 Est GFR (Non-Af Amer) > 60 > 60 Glucose 134 H 101 Calcium 9.6 9.7 Magnesium 2.1 2.2 Total Bilirubin 0.4 0.5 AST 25 23 ALT 75 H 68 H Alkaline Phosphatase 107 96 Total Protein 6.5 6.7 Albumin 3.9 4.1 07/30/18 07/30/18 08/03/18 20:05 20:05 14:09 Troponin I < 0.012 < 0.012 NT-Pro-B Natriuret Pep 74 Impressions: Esophagus X-Ray 08/01/18 00:00 IMPRESSION: SMALL HIATAL HERNIA WITH SIGNIFICANT GASTROESOPHAGEAL REFLUX. MILD ESOPHAGEAL TERTIARY CONTRACTIONS. Chest/Abdomen CTA 08/03/18 00:00 IMPRESSION: Pulmonary emphysema. No pulmonary emboli. Chest X-Ray 08/07/18 00:00 IMPRESSION: COPD. NO ACUTE RADIOGRAPHIC FINDING IN THE CHEST. Assessment & Plan - Diagnosis (1) Acute and chronic respiratory failure with hypoxia Is this a current diagnosis for this admission?: Yes Plan: continue supplemental oxygen and current nebulizer therapy. (2) COPD exacerbation Is this a current diagnosis for this admission?: Yes Plan: continue supplemental oxygen and nebulizer therapy Xopenex 1.25 mg/3ml Q8 (3) Hiatal hernia with GERD Is this a current diagnosis for this admission?: Yes Plan: surgical consult (4) Morbid obesity with BMI of 40.0-44.9, adult Is this a current diagnosis for this admission?: Yes Plan: nutrition consult
[2018-08-07] MEDS: ROPINIROLE HCL 0.25 MG TABLET PO SCH (22:34)
[2018-08-07] MEDS: ATORVASTATIN CALCIUM 40 MG TABLET PO SCH (22:35)
[2018-08-08] MEDS: LEVALBUTEROL HCL NEB 1.25 MG/3 ML AMPUL NEB SCH ×3 (00:51→16:09)
[2018-08-08] MEDS: BUSPIRONE HCL 10 MG TABLET PO SCH ×2 (05:36→13:03)
[2018-08-08] MEDS: HEPARIN SOD (PORCINE) 5,000 UNIT/ML 1 ML SYRINGE SUBCUT SCH ×2 (05:36→13:02)
[2018-08-08 07:14] LABS: HEMOGLOBIN 13.6 g/dL (12.0-15.5); MEAN CORPUSCULAR HEMOGLOBIN 29.1 pg (27.0-33.4); MEAN CORPUSCULAR HGB CONC 33.3 g/dL (32.0-36.0); MEAN CORPUSCULAR VOLUME 88 fl (80-97); PLATELET COUNT 205 10^3/uL (150-450); RED BLOOD COUNT 4.68 10^6/uL (3.72-5.28); RED CELL DISTRIBUTION WIDTH 14.7 % (11.5-14.0)
[2018-08-08] MEDS ORDERED: LANSOPRAZOLE 30 MG TAB.RAP.DR PO SCH (08:00)
[2018-08-08 08:01] LABS: BAND NEUTROPHILS % (MANUAL) 3 % (3-5); SEGMENTED NEUTROPHILS % (MAN) 65 % (42-78); TOTAL CELLS COUNTED 100
[2018-08-08 08:02] LABS: ABSOLUTE LYMPHOCYTES# (MANUAL) 2.2 10^3/uL (0.5-4.7); ABSOLUTE MONOCYTES # (MANUAL) 0.8 10^3/uL (0.1-1.4); ABSOLUTE NEUTROPHILS# (MANUAL) 7.7 10^3/uL (1.7-8.2); BASOPHILS % (MANUAL) 0 % (0-2); EOSINOPHILS % (MANUAL) 3 % (0-6); HYPOCHROMASIA SLIGHT; LYMPHOCYTES % (MANUAL) 20 % (13-45); METAMYELOCYTES % (MANUAL) 2 % (0); MONOCYTES % (MANUAL) 7 % (3-13); PLATELET COMMENT ADEQUATE; POLYCHROMASIA SLIGHT
[2018-08-08] MEDS: SUCRALFATE 1 GM TABLET PO SCH ×3 (08:24→17:00)
[2018-08-08] MEDS: FAMOTIDINE 20 MG TABLET PO SCH ×3 (08:24→17:29)
[2018-08-08] MEDS: METOCLOPRAMIDE HCL 10 MG TABLET PO SCH ×3 (08:25→16:00)
[2018-08-08 09:29] VITALS: BP 132/82
[2018-08-08] MEDS ORDERED: PREDNISONE 10 MG TABLET PO SCH (10:00)
[2018-08-08] MEDS ORDERED: LISINOPRIL 5 MG TABLET PO SCH (10:00)
[2018-08-08] MEDS: VENLAFAXINE HCL 75 MG CAP.SR.24H PO SCH (10:15)
[2018-08-08] MEDS: GUAIFENESIN 600 MG TABLET.SA PO SCH (10:16)
[2018-08-08] MEDS: DOCUSATE SODIUM 100 MG CAPSULE PO SCH (10:16)
[2018-08-08] MEDS: ROFLUMILAST 500 MCG TABLET PO SCH (11:07)
[2018-08-08] MEDS: HYDROCHLOROTHIAZIDE 12.5 MG TABLET PO SCH (11:07)
[2018-08-08] MEDS: CLOPIDOGREL BISULFATE 75 MG TABLET PO SCH (11:10)
[2018-08-08] MEDS: LORAZEPAM 0.5 MG TABLET PO PRN (11:22)
[2018-08-08] MEDS: LORATADINE 10 MG TABLET PO SCH (11:23)
--- NOTE | 2018-08-08 11:38 | PDOC TRANSFER SUMMARY ---
General - Admit/Disc Date/PCP Admission Date/Primary Care Provider: 07/30/18 23:43 SYL HAZEL PA-C Discharge Date: 08/08/18 - Discharge Diagnosis (1) Acute and chronic respiratory failure with hypoxia Is this a current diagnosis for this admission?: Yes Summary: 08/06 patient was admitted with acute on chronic respiratory failure with hypoxia hypoxia is resolved pulse ox on 2 L is 98% patient is on prednisone 10 mg p.o. every 8 hours getting regular nebulizations that she is getting still getting short of breath with walking less than 20 feet physical therapy is working with the patient recommendation from them yesterday is a shelter facility for acute rehab. 08/07/2018-pulse ox today on 3 L is 98%. Chest x-ray no evidence of pneumonia or fluid overload. Patient is presently on prednisone 10 mg twice a day, scheduled nebulizations. Physical therapy is working with the patient because patient is getting short winded by walking less than 20 feet. Follow-up chest x-ray was requested today. 08/08/2018 socks today on 3 L is 96%. No acute events in the last 24 hours. Patient pulse oxes are at baseline. She also uses oxygen 2.5-3 L at home. Chest x-ray shows no evidence of pneumonia or fluid overload. She is going to the rehab unit today on p.o. prednisone for 5 days and be continuing the nebulizer treatments while she was in the rehab. Patient is agreed to go to the acute rehab facility today if the bed is available. (2) COPD exacerbation Is this a current diagnosis for this admission?: Yes Summary: 08/06/2018 patient has history of COPD secondary to smoking on 2.5-3 L oxygen at home. Today pulse ox is 98% on 2 L improving and plan is to continue the present management and decreased p.o. prednisone from 10 mg 3 times daily to twice a day. Plan is to continue the present management. 08/07/2018 patient has chronic history of COPD secondary to smoking. Seizures 2.5-3 L of oxygen at home. Her oxygen requirements are at baseline now. Plan to decrease the prednisone from 10 mg twice a day to once a day. To continue the nebulizer treatments. 08/08/2018-patient has history of COPD secondary to smoking she uses oxygen 2.5 L to 3 L at home. Patient is going to the rehab today if the bed is available. Her main problem is she is getting short winded with minimal activity. Hopefully the acute rehab Helps her improve her physical condition. (3) Morbid obesity with BMI of 40.0-44.9, adult Is this a current diagnosis for this admission?: Yes Summary: 08/06/2018 patient is morbidly obese BMI is more than 45. Diet exercise weight loss and lifestyle modification were advised dietary consult was requested. 08/07/2018-patient has history of morbid obesity. Diet exercise weight loss and lifestyle modifications are requested. Dietary consult was also requested. 08/08/2018-BMI is more than 45. Again weight loss diet exercise discussed with the patient. Dietary consult was done while she was here in the hospital. (4) Hypertension, essential Is this a current diagnosis for this admission?: Yes Summary: 08/06/2018 patient has history of hypertension blood pressure today is 130/78 pulse rate is 72 plan is to continue the present management. 08/07/2018 blood pressure today is 138/70. Patient is presently on metoprolol 50 mg p.o. daily and hydrochlorothiazide 12.5 mg p.o. daily. I am going to place her on lisinopril 5 mg p.o. daily. 08/08/2018 blood pressure today is 132/82. Well controlled. Patient is on hydrochlorothiazide 12.5 mg p.o. daily, metoprolol 50 mg p.o. daily, lisinopril 5 mg p.o. daily. Plan is to resume those medications and continue those medications in the acute rehab. (5) Hiatal hernia with GERD Is this a current diagnosis for this admission?: Yes Summary: 08/07/2018 patient has history of hiatal hernia associated with gastric further reflux disease. She is on PPIs. Plan is to continue the present management. 08/08/2018 patient has history of hiatal hernia associated with gastric further reflux disease. She is on PPIs. No complaints of GERD while she was in the hospital. - Additional Information Resuscitation Status: Full Code Discharge Diet: Cardiac Discharge Activity: Activity As Tolerated Prescriptions: Baclofen [Baclofen 10 mg Tablet] 10 mg PO TIDP PRN #30 tablet PRN Reason: Prednisone [Deltasone 10 mg Tablet] 10 mg PO DAILY #5 tablet Home Medications: Albuterol Sulfate [Ventolin 0.083% Neb 2.5 mg/3 mL Ampul] 3 ml NEB Q8HP PRN 07/31/18 Atorvastatin Calcium [Lipitor 40 mg Tablet] 40 mg PO QHS 07/31/18 Buspirone HCl [Buspar 15 mg Tablet] 7.5 mg PO Q12 07/31/18 Clopidogrel Bisulfate [Plavix 75 mg Tablet] 75 mg PO DAILY 07/31/18 Desloratadine [Clarinex] 5 mg PO DAILY 07/31/18 Dexlansoprazole [Dexilant 30 mg Capsule] 30 mg PO DAILY 07/31/18 Evolocumab [Repatha Syringe] 140 mg IM .EVERY OTHER SAT 07/31/18 Glycopyrrolate/Formoterol Fum [Bevespi Aerosphere Inhaler] 2 puff IH Q12 07/31/18 Hydrochlorothiazide [Hydrodiuril 12.5 mg Tablet] 12.5 mg PO DAILY 07/31/18 Metoprolol Succinate [Toprol Xl 50 mg Tab.sr] 50 mg PO DAILY 07/31/18 Nitroglycerin 0.4 mg SL Q5MP PRN 07/31/18 Nystatin [Mycostatin Cream 15 gm] 1 applic TOP BID 07/31/18 Ropinirole HCl [Requip] 0.5 mg PO QHS 07/31/18 Baclofen [Baclofen 10 mg Tablet] 10 mg PO TIDP PRN #30 tablet 08/08/18 Levalbuterol HCl [Xopenex Neb 1.25 mg/3 ml Ampul] 1.25 mg NEB RTQ8 vial.neb 08/08/18 Lisinopril [Prinivil 5 mg Tablet] 5 mg PO DAILY tablet 08/08/18 Prednisone [Deltasone 10 mg Tablet] 10 mg PO DAILY #5 tablet 08/08/18 Roflumilast [Daliresp 500 Mcg Tablet] 500 mcg PO DAILY tablet 08/08/18 Venlafaxine HCl ER [Effexor Xr 75 mg Cap.sr] 75 mg PO DAILY cap.sr.24h 08/08/18 History of Present Illness Admission Date/PCP: 07/30/18 23:43 SYL HAZEL PA-C History of Present Illness: VINH HUFFMAN is a 67 year old female who presented to the emergency room with a 2-day history of rapidly worsening dyspnea. Patient admits that she has been having difficulty with her breathing for the last 2-3 months since she had an EGD performed with a biopsy taken of her hiatal hernia. Since that time she has been unable to sleep in bed she instead must sit up as she develops orthopnea-like symptoms of shortness of breath and general respiratory discomfort when she lies flat. Over the last 2 days she has noted increased wheezing as well as significantly increased dyspnea both at rest and especially with exertion. She denies cough, fever, chills and general malaise. Her dyspnea reached the point where it was severe and she felt that she needed to come to the hospital for further help as her home nebulizer treatments were no longer giving her relief. She admits to numerous similar episodes in the past with exacerbations of her COPD and she has identified e xertion or lying flat as the segal components to increasing her symptoms. She has not identified any ameliorating factors for her symptoms other than her usual medications which were not working when she presented to the hospital. In the emergency room she was found to have a normal CBC and a normal chest x-ray but was noted to be significantly hypoxic especially with any exertion. Therefore she was hospitalized for further evaluation and treatment of her acute exacerbation of COPD. Physical Exam Vital Signs: Temp Pulse Resp BP Pulse Ox 97.6 F 88 18 132/82 H 98 08/08/18 08:00 08/08/18 08:36 08/08/18 08:36 08/08/18 08:00 08/08/18 08:36 Intake & Output 08/07/18 08/08/18 08/09/18 06:59 06:59 06:59 Intake Total 1020 680 Balance 1020 680 Weight 240 kg General appearance: PRESENT: morbidly obese Head exam: PRESENT: atraumatic Eye exam: PRESENT: PERRLA Mouth exam: PRESENT: moist Neck exam: ABSENT: carotid bruit, JVD, lymphadenopathy, thyromegaly Respiratory exam: PRESENT: decreased breath sounds Cardiovascular exam: PRESENT: tachycardia GI/Abdominal exam: PRESENT: normal bowel sounds, soft. ABSENT: distended, guarding, mass, organolmegaly, rebound, tenderness Extremities exam: PRESENT: full ROM. ABSENT: calf tenderness, clubbing, pedal edema Neurological exam: PRESENT: alert, awake, oriented to person, oriented to place, oriented to time, oriented to situation, CN II-XII grossly intact. ABSENT: motor sensory deficit Psychiatric exam: PRESENT: appropriate affect, normal mood. ABSENT: homicidal ideation, suicidal ideation Results Laboratory Results: 08/08/18 06:41 08/07/18 12:07 08/07/18 08/08/18 12:07 06:41 WBC 11.0 H RBC 4.68 Hgb 13.6 Hct 41.0 MCV 88 MCH 29.1 MCHC 33.3 RDW 14.7 H Plt Count 205 Seg Neutrophils % Not Reportable Lymphocytes % Not Reportable Monocytes % Not Reportable Eosinophils % Not Reportable Basophils % Not Reportable Absolute Neutrophils Not Reportable Absolute Lymphocytes Not Reportable Absolute Monocytes Not Reportable Absolute Eosinophils Not Reportable Absolute Basophils Not Reportable Sodium 136.2 L Potassium 3.9 Chloride 96 L Carbon Dioxide 33 H Anion Gap 7 BUN 22 H Creatinine 0.67 Est GFR ( Amer) > 60 Est GFR (Non-Af Amer) > 60 Glucose 101 Calcium 9.7 Magnesium 2.2 Total Bilirubin 0.5 AST 23 ALT 68 H Alkaline Phosphatase 96 Total Protein 6.7 Albumin 4.1 07/30/18 07/30/18 08/03/18 20:05 20:05 14:09 Troponin I < 0.012 < 0.012 NT-Pro-B Natriuret Pep 74 Impressions: Esophagus X-Ray 08/01/18 00:00 IMPRESSION: SMALL HIATAL HERNIA WITH SIGNIFICANT GASTROESOPHAGEAL REFLUX. MILD ESOPHAGEAL TERTIARY CONTRACTIONS. Chest/Abdomen CTA 08/03/18 00:00 IMPRESSION: Pulmonary emphysema. No pulmonary emboli. Chest X-Ray 08/07/18 00:00 IMPRESSION: COPD. NO ACUTE RADIOGRAPHIC FINDING IN THE CHEST. Transfer Plan - Time Spent with Patient Time spent with patient: Greater than 30 Minutes Qualifiers - * PATIENT BEING DISCHARGED WITH ANY OF THE FOLLOWING DIAGNOSIS: No VTE patient discharged on overlapping Therapy?: Yes
[2018-08-08] MEDS: METOPROLOL SUCCINATE 50 MG TAB.SR.24H PO SCH (13:00)
[2018-08-08] MEDS: ACETAMINOPHEN 325 MG TABLET PO PRN (13:00)
[2018-08-08] MEDS: BACLOFEN 10 MG TABLET PO PRN (13:01)
== END 2018-08-08 17:00 | disposition short-term general hospital (02) | DRG 190 ==
LOC: ER 19:15 → EH 23:43 → 4N 07-31 03:55 → 2N 08-04 20:30
PROVIDERS: ADMIT Emergency Medicine; ATTEND Emergency Medicine
PROC: 3E0F3GC Introduction of Other Therapeutic Substance into Respiratory Tract, Percutaneous Approach (ICD-10-PCS; principal; 2018-07-30)
DX: J44.1 Chronic obstructive pulmonary disease with (acute) exacerbation (principal); J96.21 Acute and chronic respiratory failure with hypoxia; Z68.41 Body mass index [BMI] 40.0-44.9, adult; Z99.81 Dependence on supplemental oxygen; E66.01 Morbid (severe) obesity due to excess calories; I10 Essential (primary) hypertension; K44.9 Diaphragmatic hernia without obstruction or gangrene; M46.92 Unspecified inflammatory spondylopathy, cervical region; F41.9 Anxiety disorder, unspecified; K21.0 Gastro-esophageal reflux disease with esophagitis; I25.2 Old myocardial infarction; Z87.01 Personal history of pneumonia (recurrent); Z87.891 Personal history of nicotine dependence; Z79.52 Long term (current) use of systemic steroids; Z71.3 Dietary counseling and surveillance; Z82.49 Family history of ischemic heart disease and other diseases of the circulatory system; Z83.6 Family history of other diseases of the respiratory system
CPT/HCPCS: 36415; 71045; 71046; 71275; 74220; 80048; 80053; 82803; 82962; 83735; 83880; 84439; 84443; 84481; 84484; 85025; 85027; 85610; 93005; 93010; 94640; 94667; 94668; 94799; 96374; 96375; 99285; J1644; J2060; J2300; J2405; J2920; J2930; J3475; J3490; J7512; J7620

== ENCOUNTER → 2018-12-08 | Outpatient (CLI) | payer MEDICARE, OTHER ==
[2018-12-08 12:52] LABS: ABSOLUTE BASOPHILS # (AUTO) 0.1 10^3/uL (0.0-0.2); ABSOLUTE EOSINOPHILS # (AUTO) 0.1 10^3/uL (0.0-0.6); ABSOLUTE LYMPHOCYTES (AUTO) 1.1 10^3/uL (0.5-4.7); ABSOLUTE MONOCYTES (AUTO) 0.5 10^3/uL (0.1-1.4); ABSOLUTE NEUT (AUTO) 4.5 10^3/uL (1.7-8.2); BASOPHILS % (AUTO) 1.5 % (0-2); EOSINOPHILS % (AUTO) 1.7 % (0-6); HEMATOCRIT 39.2 % (36.0-47.0); HEMOGLOBIN 12.8 g/dL (12.0-15.5); LYMPHOCYTES % (AUTO) 18.1 % (13-45); MEAN CORPUSCULAR HEMOGLOBIN 28.6 pg (27.0-33.4); MEAN CORPUSCULAR HGB CONC 32.8 g/dL (32.0-36.0); MEAN CORPUSCULAR VOLUME 87 fl (80-97); MONOCYTES % (AUTO) 8.2 % (3-13); PLATELET COUNT 185 10^3/uL (150-450); RED BLOOD COUNT 4.49 10^6/uL (3.72-5.28); RED CELL DISTRIBUTION WIDTH 14.4 % (11.5-14.0); SEGMENTED NEUTROPHILS % (AUTO) 70.5 % (42-78); TOTAL CELLS COUNTED % (AUTO) 100 %; WHITE BLOOD COUNT 6.3 10^3/uL (4.0-10.5)
[2018-12-08 13:27] LABS: ALANINE AMINOTRANSFERASE 34 U/L (9-52); ALKALINE PHOSPHATASE 96 U/L (38-126); ANION GAP 10 (5-19); ASPARTATE AMINO TRANSFERASE 20 U/L (14-36); BILIRUBIN,DIRECT 0.3 mg/dL (0.0-0.4); BILIRUBIN,TOTAL 0.3 mg/dL (0.2-1.3); BLOOD UREA NITROGEN 23 mg/dL (7-20); CALCIUM 9.8 mg/dL (8.4-10.2); CARBON DIOXIDE 29 mmol/L (22-30); CHLORIDE 102 mmol/L (98-107); CHOLESTEROL 107.71 mg/dL (0-200); GLUCOSE 91 mg/dL (75-110); POTASSIUM 4.5 mmol/L (3.6-5.0); TOTAL PROTEIN 6.7 g/dL (6.3-8.2); TRIGLYCERIDES 128 mg/dL (<150)
[2018-12-08 13:38] LABS: DIRECT LDL 46 mg/dL (<100)
[2018-12-08 13:45] LABS: CHOLESTEROL 107.71 mg/dL (0-200); DIRECT LDL 46 mg/dL (<100); TRIGLYCERIDES 128 mg/dL (<150)
[2018-12-08 13:46] LABS: ALANINE AMINOTRANSFERASE 34 U/L (9-52); ALKALINE PHOSPHATASE 96 U/L (38-126); ANION GAP 10 (5-19); ASPARTATE AMINO TRANSFERASE 20 U/L (14-36); BILIRUBIN,DIRECT 0.3 mg/dL (0.0-0.4); BILIRUBIN,TOTAL 0.3 mg/dL (0.2-1.3); BLOOD UREA NITROGEN 23 mg/dL (7-20); CALCIUM 9.8 mg/dL (8.4-10.2); CARBON DIOXIDE 29 mmol/L (22-30); CHLORIDE 102 mmol/L (98-107); GLUCOSE 91 mg/dL (75-110); POTASSIUM 4.5 mmol/L (3.6-5.0); TOTAL PROTEIN 6.7 g/dL (6.3-8.2)
== END ==
LOC: LAB 12:10
PROVIDERS: ATTEND Internal Medicine Cardiovascular Disease
DX: F41.9 Anxiety disorder, unspecified (principal); F43.10 Post-traumatic stress disorder, unspecified; F43.21 Adjustment disorder with depressed mood; Z79.899 Other long term (current) drug therapy; E78.2 Mixed hyperlipidemia; I10 Essential (primary) hypertension
CPT/HCPCS: 36415; 80048; 80053; 80061; 80076; 83735; 84443; 85025

== ENCOUNTER → 2019-04-29 | Outpatient (CLI) | payer MEDICARE ==
[2019-04-29 11:28] LABS: ALBUMIN 4.2 g/dL (3.5-5.0); ALKALINE PHOSPHATASE 90 U/L (38-126); ANION GAP 10 (5-19); ASPARTATE AMINO TRANSFERASE 21 U/L (14-36); BILIRUBIN,DIRECT 0.1 mg/dL (0.0-0.4); BILIRUBIN,TOTAL 0.4 mg/dL (0.2-1.3); BLOOD UREA NITROGEN 27 mg/dL (7-20); CALCIUM 9.9 mg/dL (8.4-10.2); CARBON DIOXIDE 30 mmol/L (22-30); CHLORIDE 100 mmol/L (98-107); CHOLESTEROL 100.26 mg/dL (0-200); GLUCOSE 99 mg/dL (75-110); POTASSIUM 3.8 mmol/L (3.6-5.0); TOTAL PROTEIN 6.9 g/dL (6.3-8.2); TRIGLYCERIDES 185 mg/dL (<150)
[2019-04-29 11:44] LABS: DIRECT LDL < 30 mg/dL (<100)
== END ==
LOC: LAB 10:23
PROVIDERS: ATTEND Internal Medicine Cardiovascular Disease
DX: E78.2 Mixed hyperlipidemia (principal); I10 Essential (primary) hypertension; E55.9 Vitamin D deficiency, unspecified; Z79.899 Other long term (current) drug therapy
CPT/HCPCS: 36415; 80048; 80061; 80076; 82306; 83735; 84443

== ENCOUNTER 2019-06-21 09:58 | Emergency (ER) | payer MEDICARE ==
--- NOTE | 2019-06-21 10:26 | ER Document Report ---
ED Medical Screen (RME) - General Chief Complaint: Laceration Stated Complaint: FALL/HEAD LACERATION Time Seen by Provider: 06/21/19 10:22 Primary Care Provider: SYL HAZEL PA-C [Primary Care Provider] - Follow up as needed Mode of Arrival: Ambulatory Information source: Patient Notes: 68-year-old female presented to ED for out of the bed hit her head on the floor. States she woke up on the floor and there was blood on the floor so she screamed out and someone came and helped her. She does not know when she fell or how long she was laying on the floor. She also aggravated her left hip and now has pain in her left hip. Patient to the right sikh area is about 1 to 1- 1/2 cm. Patient is on Plavix. Bleeding is stopped at this time. She states she has had issues with the left hip in the past and there is post to do a procedure on it on and this just aggravated her already injury. So we will get it x-ray of the left hip and a CT of the head. I have greeted and performed a rapid initial assessment of this patient. A comprehensive ED assessment and evaluation of the patient, analysis of test results and completion of medical decision making process will be conducted by an additional ED providers. TRAVEL OUTSIDE OF THE [place] IN LAST 30 DAYS: No - Related Data Allergies/Adverse Reactions: codeine Allergy (Severe, Verified 03/17/18 08:22) "I feel like I'm on fire", nausea, burning feeling all over, Past Medical History - Past Medical History Cardiac Medical History: Reports: Hx Heart Attack - "Silent [place] according to stress test" , Hx Hypertension - "Once in a while but it's generally under control" Denies: Hx Atrial Fibrillation, Hx Congestive Heart Failure, Hx Coronary Artery Disease Pulmonary Medical History: Reports: Hx COPD, Hx Pneumonia, Hx Respiratory F ailure - Chronic Denies: Hx Asthma, Hx Bronchitis, Hx Tuberculosis Neurological Medical History: Denies: Hx Cerebrovascular Accident, Hx Seizures Endocrine Medical History: Denies: Hx Diabetes Mellitus Type 1, Hx Diabetes Mellitus Type 2, Hx Hyperthyroidism, Hx Hypothyroidism Renal/ Medical History: Denies: Hx Peritoneal Dialysis GI Medical History: Reports: Hx Gastroesophageal Reflux Disease, Hx Hiatal Hernia. Denies: Hx Cirrhosis, Hx Crohn's Disease, Hx Hepatitis, Hx Ulcerative Colitis Musculoskeltal Medical History: Reports Hx Arthritis - Neck , Denies Hx Gout Skin Medical History: Denies Hx Eczema, Denies Hx Psoriasis Infectious Medical History: Denies: Hx Hepatitis Past Surgical History: Reports: Hx Cholecystectomy, Hx Tubal Ligation, Other - Upper endoscopy (EGD) with biopsy. Denies: Hx Hysterectomy - Immunizations Hx Diphtheria, Pertussis, Tetanus Vaccination: Yes Physical Exam - Vital signs Vitals: Temp Pulse Resp BP Pulse Ox 98.4 F 66 30 H 124/61 99 06/21/19 09:59 06/21/19 09:59 06/21/19 09:59 06/21/19 09:59 06/21/19 09:59 Course - Vital Signs Vital signs: Temp Pulse Resp BP Pulse Ox 98.4 F 66 30 H 124/61 99 06/21/19 09:59 06/21/19 09:59 06/21/19 09:59 06/21/19 09:59 06/21/19 09:59 Doctor's Discharge - Discharge Referrals: SYL HAZEL PA-C [Primary Care Provider] - Follow up as needed
[2019-06-21] MEDS ORDERED: ACETAMINOPHEN 325 MG TABLET PO ONE (10:27)
--- NOTE | 2019-06-21 11:06 | RADIOLOGY REPORT (SQ) ---
EXAM DESCRIPTION: CT HEAD WITHOUT COMPLETED DATE/TIME: 06/21/2019 10:48 am REASON FOR STUDY: fall head and hip injury on blood thinners loc COMPARISON: None. TECHNIQUE: Axial images acquired through the brain without intravenous contrast. Images reviewed wi th bone, brain and subdural windows. Additional sagittal and coronal reconstructions were generated. Images stored on PACS. All CT scanners at this facility use dose modulation, iterative reconstruction, and/or weight based d osing when appropriate to reduce radiation dose to as low as reasonably achievable (ALARA). [facility]: Dose Right [facility]: CareDose [facility]: Dose Right [facility]: Teradose 4D [facility]: Payteller RADIATION DOSE: CT Rad equipment meets quality standard of care and radiation dose reduction techniq ues were employed. CTDIvol: 53.2 mGy. DLP: 1150 mGy-cm. mGy. LIMITATIONS: None. FINDINGS: VENTRICLES: Normal size and contour. CEREBRUM: No masses. No hemorrhage. No midline shift. No evidence for acute infarction. Normal gra y/white matter differentiation. No areas of low density in the white matter. CEREBELLUM: No masses. No hemorrhage. No alteration of density. No evidence for acute infarction. EXTRAAXIAL SPACES: No fluid collections. No masses. ORBITS AND GLOBE: No intra- or extraconal masses. Normal contour of globe without masses. CALVARIUM: No fracture. PARANASAL SINUSES: No fluid or mucosal thickening. SOFT TISSUES: No mass or hematoma. OTHER: No other significant finding. IMPRESSION: NORMAL BRAIN CT WITHOUT CONTRAST. EVIDENCE OF ACUTE STROKE: NO. COMMENT: Quality ID # [id number]: Final reports with documentation of one or more dose reduction techniques (e.g., Automated exposure control, adjustment of the mA and/or kV according to patient size, use of iterative reconstruction technique) TECHNICAL DOCUMENTATION: JOB ID: [id number] [employer]- All Rights Reserved Reading location - IP/workstation name: [email or web address]
--- NOTE | 2019-06-21 11:28 | RADIOLOGY REPORT (SQ) ---
EXAM DESCRIPTION: HIP LEFT AP/LATERAL COMPLETED DATE/TIME: 06/21/2019 11:15 am REASON FOR STUDY: fall head and hip injury on blood thinners loc COMPARISON: None. NUMBER OF VIEWS: Two views. TECHNIQUE: AP pelvis and additional frog-leg view of the left hip. LIMITATIONS: None. FINDINGS: MINERALIZATION: Normal. LEFT HIP: No fracture or dislocation. Joint space narrowing with sclerosis and osteophytes. No worr isome bone lesions. RIGHT HIP: No fracture or dislocation. Mild joint space narrowing with sclerosis and osteophytes. N o worrisome bone lesions. PUBIS AND ISCHIUM: No fracture. PELVIS: No fracture. SACRUM: No fracture or dislocation. No worrisome bone lesions. LOWER LUMBAR SPINE: No fracture or dislocation. No worrisome bone lesions. Degenerative disc disease . SOFT TISSUES: No findings. OTHER: No other significant finding. IMPRESSION: DEGENERATIVE CHANGES IN THE HIPS. NO RADIOGRAPHIC EVIDENCE OF ACUTE INJURY. TECHNICAL DOCUMENTATION: JOB ID: [id number] [employer]- All Rights Reserved Reading location - IP/workstation name: [email or web address]
[2019-06-21] MEDS ORDERED: LIDOCAINE 1.5%/EPINEPHRINE INJ-PF 30 ML SDV INJ ONE (11:31)
[2019-06-21 11:37] LABS: ABSOLUTE BASOPHILS # (AUTO) 0.1 10^3/uL (0.0-0.2); ABSOLUTE EOSINOPHILS # (AUTO) 0.2 10^3/uL (0.0-0.6); ABSOLUTE LYMPHOCYTES (AUTO) 1.2 10^3/uL (0.5-4.7); ABSOLUTE MONOCYTES (AUTO) 0.5 10^3/uL (0.1-1.4); ABSOLUTE NEUT (AUTO) 4.1 10^3/uL (1.7-8.2); BASOPHILS % (AUTO) 1.2 % (0-2); HEMATOCRIT 41.4 % (36.0-47.0); HEMOGLOBIN 13.6 g/dL (12.0-15.5); MEAN CORPUSCULAR HEMOGLOBIN 30.9 pg (27.0-33.4); MEAN CORPUSCULAR HGB CONC 32.9 g/dL (32.0-36.0); MEAN CORPUSCULAR VOLUME 94 fl (80-97); MONOCYTES % (AUTO) 8.7 % (3-13); PLATELET COUNT 179 10^3/uL (150-450); RED BLOOD COUNT 4.41 10^6/uL (3.72-5.28); RED CELL DISTRIBUTION WIDTH 13.5 % (11.5-14.0); SEGMENTED NEUTROPHILS % (AUTO) 67.1 % (42-78); TOTAL CELLS COUNTED % (AUTO) 100 %; WHITE BLOOD COUNT 6.2 10^3/uL (4.0-10.5)
[2019-06-21 11:47] LABS: INTERNATIONAL RATION (INR) 0.98
[2019-06-21] MEDS ORDERED: LIDOCAINE 1% INJ (10 MG/ML) 10 ML MDV INJ ONE (11:51)
--- NOTE | 2019-06-21 12:15 | ER Document Report ---
ED General - General Chief Complaint: Laceration Stated Complaint: FALL/HEAD LACERATION Time Seen by Provider: 06/21/19 10:22 Primary Care Provider: SYL HAZEL PA-C [Primary Care Provider] - Follow up as needed Mode of Arrival: Ambulatory Information source: Patient Notes: HPI: 68-year-old female who states that she was having a dream where she was diving into a pool and noticed that she fell off her bed and hit the right side of her head. She denies loss of consciousness. She denies any and all chest pain, shortness of breath, weakness or numbness either before or after the incident. She does have some pain to the left hip. This is a chronic problem. Secondary to a bad COPD she is supposed to have "nerve burning" this coming week with orthopedics. She denies any neck pain, midline back pain, anterior posterior rib pain, abdominal pain, or pain to the extremities other than the left hip. ROS: See HPI All other review of systems reviewed and otherwise negative Reviewed vital signs and nursing note as charted by RN. PHYSICAL EXAM: CONSTITUTIONAL: Alert and oriented and responds appropriately to questions. Well-appearing; well-nourished HEAD: Normocephalic; small hemostatic laceration to the right temporal region; no mastoid tenderness or ecchymosis; no hemotympanum present EYES: PERRL; full extraocular range of motion ENT: Normal nose; no rhinorrhea; moist mucous membranes; pharynx without lesions noted NECK: Supple without meningismus; non-tender to palpation along the midline spine CARD: Regular rate and rhythm; no murmurs; symmetric distal pulses RESP: Normal chest excursion without splinting or tachypnea; breath sounds clear and equal bilaterally; no wheezes, no rhonchi, no rales ABD/GI: Normal bowel sounds; non-distended; soft, non-tender; no palpable organomegaly or masses BACK: The back appears normal and is non-tender to palpation EXT: Patient has no obvious deformity of the lower extremities. Leg is not shortened or rotated. Neurovascularly intact distally SKIN: See above NEURO: CN 2-12 intact; 5/5 bilateral upper and lower extremity strength with sensation intact to light touch PSYCH: The patient's mood and manner are appropriate. Grooming and personal hygiene are appropriate. TRAVEL OUTSIDE OF THE [place] IN LAST 30 DAYS: No - Related Data Allergies/Adverse Reactions: codeine Allergy (Severe, Verified 03/17/18 08:22) "I feel like I'm on fire", nausea, burning feeling all over, Past Medical History - General Information source: Patient - Social History Smoking Status: Unknown if Ever Smoked Family History: Reviewed & Not Pertinent Patient has suicidal ideation: No Patient has homicidal ideation: No - Past Medical History Cardiac Medical History: Reports: Hx Heart Attack - "Silent PA according to stress test" , Hx Hypertension - "Once in a while but it's generally under control" Denies: Hx Atrial Fibrillation, Hx Congestive Heart Failure, Hx Coronary Artery Disease Pulmonary Medical History: Reports: Hx COPD, Hx Pneumonia, Hx Respiratory Failure - Chronic Denies: Hx Asthma, Hx Bronchitis, Hx Tuberculosis Neurological Medical History: Denies: Hx Cerebrovascular Accident, Hx Seizures Endocrine Medical History: Denies: Hx Diabetes Mellitus Type 1, Hx Diabetes Mellitus Type 2, Hx Hyperthyroidism, Hx Hypothyroidism Renal/ Medical History: Denies: Hx Peritoneal Dialysis GI Medical History: Reports: Hx Gastroesophageal Reflux Disease, Hx Hiatal Hernia. Denies: Hx Cirrhosis, Hx Crohn's Disease, Hx Hepatitis, Hx Ulcerative Colitis Musculoskeletal Medical History: Reports Hx Arthritis - Neck , Denies Hx Gout Skin Medical History: Denies Hx Eczema, Denies Hx Psoriasis Infectious Medical History: Denies: Hx Hepatitis Past Surgical History: Reports: Hx Cholecystectomy, Hx Tubal Ligation, Other - Upper endoscopy (EGD) with biopsy. Denies: Hx Hysterectomy - Immunizations Hx Diphtheria, Pertussis, Tetanus Vaccination: Yes Hx Pneumococcal Vaccination: 07/22/17 Physical Exam - Vital signs Vitals: Temp Pulse Resp BP Pulse Ox 98.4 F 66 30 H 124/61 99 06/21/19 09:59 06/21/19 09:59 06/21/19 09:59 06/21/19 09:59 06/21/19 09:59 Course - Re-evaluation Re-evalutation: Given the above history and physical, we ordered a CT scan of the head, x-ray of the left hip, basic labs, and will reassess. Lesion will most likely need suturing. 06/21/19 12:56 Labs and imaging as recorded. EKG shows a heart of 61, normal sinus rhythm, normal axis, no ST elevation or depression. 06/21/19 13:31 No change in exam. Jason applied. Patient will be discharged home with strict return precautions, wound care instructions, and follow-up with the primary care physician. Patient has no urinary symptoms. Urine culture has been sent. - Vital Signs Vital signs: Temp Pulse Resp BP Pulse Ox 98.4 F 66 30 H 124/61 99 06/21/19 09:59 06/21/19 09:59 06/21/19 09:59 06/21/19 09:59 06/21/19 09:59 - Laboratory Result Diagrams: 06/21/19 11:21 06/21/19 12:25 Laboratory results interpreted by me: 06/21/19 06/21/19 11:46 12:25 BUN 28 H Urine Ketones TRACE H Urine Urobilinogen 2.0 H Ur Leukocyte Esterase SMALL H Procedures - Laceration/Wound Repair Right Head Wound length (cm): 2 Wound's Depth, Shape: Superficial, Linear Laceration pre-procedure: Chloraprep applied Anesthetic type: 1% Lidocaine Volume Anesthetic (mLs): 5 Wound explored: Clean Irrigated w/ Saline (mLs): 500 Wound Repaired With: [place] Number of Sutures: 2 Post-procedure wound care: Sterile dressing applied Discharge - Discharge Clinical Impression: Fall Qualifiers: Encounter type: initial encounter Qualified Code(s): W19.XXXA - Unspecified fall, initial encounter Closed head injury Qualifiers: Encounter type: initial encounter Qualified Code(s): S09.90XA - Unspecified injury of head, initial encounter Laceration of head Qualifiers: Encounter type: initial encounter Location of open wound of head: scalp Foreign body presence: without foreign body Qualified Code(s): S01.01XA - Laceration without foreign body of scalp, initial encounter Contusion of left hip Qualifiers: Encounter type: initial encounter Qualified Code(s): S70.02XA - Contusion of left hip, initial encounter Condition: Good Disposition: HOME, SELF-CARE Additional Instructions: Come back immediately for any weakness, numbness, vomiting, confusion, or any other acute problems. Please apply bacitracin to the wound twice daily and return in 7 to 10 days for staple removal. Please follow-up with your primary care physician and orthopedic surgeon as scheduled. Referrals: SYL HAZEL PA-C [Primary Care Provider] - Follow up as needed
[2019-06-21 12:18] LABS: APPEARANCE,URINE SLIGHTLY-CLOUDY; BILIRUBIN,URINE NEGATIVE (NEGATIVE); COLOR,URINE YELLOW; GLUCOSE, URINE NEGATIVE (NEGATIVE); KETONES,URINE TRACE mg/dL (NEGATIVE); LEUKOCYTE ESTERASE,URINE SMALL (NEGATIVE); NITRITE,URINE NEGATIVE (NEGATIVE); PROTEIN,URINE NEGATIVE (NEGATIVE); URINE SPECIFIC GRAVITY 1.027
[2019-06-21 12:53] LABS: ALBUMIN 3.7 g/dL (3.5-5.0); ALKALINE PHOSPHATASE 78 U/L (38-126); ANION GAP 8 (5-19); ASPARTATE AMINO TRANSFERASE 30 U/L (14-36); BILIRUBIN,DIRECT 0.1 mg/dL (0.0-0.4); BILIRUBIN,TOTAL 0.3 mg/dL (0.2-1.3); BLOOD UREA NITROGEN 28 mg/dL (7-20); CALCIUM 9.1 mg/dL (8.4-10.2); CARBON DIOXIDE 30 mmol/L (22-30); CHLORIDE 102 mmol/L (98-107); CREATINE KINASE 37 U/L (30-135); GLUCOSE 82 mg/dL (75-110); POTASSIUM 4.5 mmol/L (3.6-5.0); TOTAL PROTEIN 6.3 g/dL (6.3-8.2)
[2019-06-21 13:39] VITALS: BP 123/75
--- NOTE | 2019-06-21 23:37 | EKG REPORT ---
SEVERITY:- NORMAL ECG - SINUS RHYTHM : Confirmed by: Alisha Castro 21-Jun-2019 23:35:09
== END 2019-06-21 13:50 | disposition home or self-care (01) ==
LOC: ER 09:58
DX: S01.01XA Laceration without foreign body of scalp, initial encounter (principal); S09.90XA Unspecified injury of head, initial encounter; S70.02XA Contusion of left hip, initial encounter; W06.XXXA Fall from bed, initial encounter; Y93.84 Activity, sleeping; M25.552 Pain in left hip; I10 Essential (primary) hypertension; J44.9 Chronic obstructive pulmonary disease, unspecified; Z88.5 Allergy status to narcotic agent; Z88.6 Allergy status to analgesic agent
CPT/HCPCS: 93005; 99283; 36415; 87086; 82550; 85025; 85610; 80053; 81001; 84484; 73502; 70450; 93010; 12001; A9270; J3490

== ENCOUNTER → 2019-06-25 | Day surgery (SDC) | payer MEDICARE ==
[~2019-06-25] MED LIST changes: +BUPIVACAINE HCL 0.5 % INJ/PF 30 ML SDV ONE; +LIDOCAINE 1% INJ-PF (10 MG/ML) 30 ML SDV ONE; -PROPOFOL INJ 200 MG/20 ML VIAL IV ONE
--- NOTE | 2019-06-25 11:20 | Operative Report ---
PROCEDURE: 1. Left articular branch of femoral nerve radiofrequency denervation 2. Left articular branch of obturator nerve radiofrequency denervation Preoperative Diagnosis: Left osteoarthritis Hip Postoperative Diagnosis: Left osteoarthritis Hip DATE OF PROCEDURE: June 25, 2019 ANESTHESIA: Local anesthesia COMPLICATIONS: none reported PROCEDURE IN DETAIL: Hx/PE/meds/allergies/applicable labs reviewed. No changes and no contraindications were found. Full description of the procedure was provided including benefits as well as possible complications including transient in creased pain, stomach irritation, mood alteration, transient weakness or parathesias as well as more serious nerve injury, bleeding, infection or allergic reaction. Informed consent was obtained and documented. The patient was brought to the procedure room and placed on the exam table in a comfortable supine position. The place for the needle placement was obtained by manual palpation with radiographic confirmation. The sterile field was prepared and sterile drapes. Local anesthesia superficial and deep was provided by local infiltration of 6 ml 1 % lidocaine. Using fluoroscopic guidance a 17g 150 mm radiofrequency needle with 4mm active tip was advanced to the anteromedial aspect of the extraarticular portion of the hip joint where the articular branch of the femoral nerve traverses until a bony endpoint is felt. Attempted aspiration yielded no blood. Motor testing was then performed with 2hz at 2 volts and no lower extremity motor stimulation was observed. 2 cc of .5 % marcaine was injected through the RF needle. A radiofrequency lesion of the articular branch of the femoral nerve was then performed at 80 degrees C for 2 min and 30 seconds. The needle was then withdrawn. A second needle was placed and using fluoroscopic confirmation with ULTRASOUND guidance the needle was advanced to the incisura of the acetabulum where the articular branch of the obturator nerve traverses until a bony endpoint was met. Attempted aspiration yielded no blood. Radiographs were made. Motor testing was then performed with 2hz at 2 volts and no lower extremity motor stimulation was observed. 2cc .5 % marcaine was injected through the RF needle. A radiofrequency lesion of the articular branch of the obturator nerve was then performed at 80 degrees C for 2 minutes and 30 seconds. The needle was then withdrawn. The patient tolerated the procedure well. After observation the patient was discharged with instructions and follow up. They were also provided contact information to call regarding any concerning symptoms or questions. IMPRESSION: 1. Successful radiofrequency ablations of the articular branches of the left obturator and femoral nerves was performed. 2. Follow up in 1-2 weeks to assess the efficacy of the procedure. 3. Estimated Blood Loss: 0 4. Disposition: home
== END ==
LOC: RAD 11:00
PROVIDERS: ATTEND Family Medicine
DX: M16.12 Unilateral primary osteoarthritis, left hip (principal)
CPT/HCPCS: 64640 ×2; J3490 ×2

== ENCOUNTER → 2019-08-19 | Outpatient (CLI) | payer OTHER ==
[2019-08-19 11:08] LABS: ALBUMIN 4.3 g/dL (3.5-5.0); ALKALINE PHOSPHATASE 93 U/L (38-126); ANION GAP 10 (5-19); ASPARTATE AMINO TRANSFERASE 31 U/L (14-36); BILIRUBIN,DIRECT 0.3 mg/dL (0.0-0.4); BILIRUBIN,TOTAL 0.5 mg/dL (0.2-1.3); BLOOD UREA NITROGEN 20 mg/dL (7-20); CALCIUM 10.1 mg/dL (8.4-10.2); CARBON DIOXIDE 32 mmol/L (22-30); CHLORIDE 100 mmol/L (98-107); CHOLESTEROL 98.57 mg/dL (0-200); GLUCOSE 97 mg/dL (75-110); TRIGLYCERIDES 142 mg/dL (<150)
[2019-08-19 11:23] LABS: DIRECT LDL < 30 mg/dL (<100)
== END ==
LOC: OD 10:11
PROVIDERS: ATTEND Internal Medicine Cardiovascular Disease
DX: E78.2 Mixed hyperlipidemia (principal); I10 Essential (primary) hypertension; Z79.899 Other long term (current) drug therapy
CPT/HCPCS: 36415; 80048; 80061; 80076

== ENCOUNTER → 2019-12-11 | Outpatient (CLI) | payer OTHER ==
[2019-12-11 12:29] LABS: ALBUMIN 3.9 g/dL (3.5-5.0); ALKALINE PHOSPHATASE 81 U/L (38-126); ASPARTATE AMINO TRANSFERASE 22 U/L (14-36); BILIRUBIN,TOTAL 0.3 mg/dL (0.2-1.3); BLOOD UREA NITROGEN 21 mg/dL (7-20); CALCIUM 9.5 mg/dL (8.4-10.2); CARBON DIOXIDE 30 mmol/L (22-30); CHLORIDE 103 mmol/L (98-107); CHOLESTEROL 138.82 mg/dL (0-200); GLUCOSE 89 mg/dL (75-110); POTASSIUM 4.4 mmol/L (3.6-5.0); TOTAL PROTEIN 6.4 g/dL (6.3-8.2); TRIGLYCERIDES 166 mg/dL (<150)
[2019-12-11 12:40] LABS: DIRECT LDL 72 mg/dL (<100)
[2019-12-11 12:42] LABS: ANION GAP 4 (5-19); VLDL CHOLESTEROL 33.2 mg/dL (10-31)
== END ==
LOC: OD 11:16
PROVIDERS: ATTEND Internal Medicine Cardiovascular Disease
DX: E78.2 Mixed hyperlipidemia (principal); E83.42 Hypomagnesemia; I10 Essential (primary) hypertension; R94.5 Abnormal results of liver function studies; Z79.899 Other long term (current) drug therapy
CPT/HCPCS: 36415; 80048; 80061; 80076; 83735

== ENCOUNTER → 2020-03-08 | Outpatient (CLI) | payer OTHER ==
--- NOTE | 2020-03-09 10:53 | RADIOLOGY REPORT (SQ) ---
EXAM DESCRIPTION: CT LUNG CANCER SCREENING IMAGES COMPLETED DATE/TIME: 03/08/2020 1:29 pm REASON FOR STUDY: PERSONAL HX OF NICOTINE DEPENDENCE (Z87.891) Z87.891 PERSONAL HISTORY OF NICOTINE DEPENDENCE Has the patient had a Chest CT scan within the past year? N Was the patient offered tobacco cessation counseling? Y Was the patient engaged in shared decision making for this test? Y Does the patient have signs or symptoms of Lung Cancer? N Is the patient a smoker? N How many pack years? 44 How many years since quitting smoking? 14Y Patients age: 69 COMPARISON: 08/03/2018 TECHNIQUE: Low Dose CT scan performed of the chest without intravenous contrast for purposes of scre ening for lung cancer. Images reviewed with lung, soft tissue and bone windows. Reconstructed coron al and sagittal MPR images reviewed. All images stored on PACS. All CT scanners at this facility use dose modulation, iterative reconstruction, and/or weight based d osing when appropriate to reduce radiation dose to as low as reasonably achievable (ALARA). [facility]: Dose Right [facility]: CareDose [facility]: Dose Right [facility]: Teradose 4D [facility]: Karma RADIATION DOSE: CT Rad equipment meets quality standard of care and radiation dose reduction techniq ues were employed. CTDIvol: NaN mGy. DLP: 0 mGy-cm. . . LIMITATIONS: None FINDINGS: LUNGS AND PLEURA: No masses or nodules. No pleural effusions or calcifications. No pne umothorax. Mild bibasilar scarring. Diffuse centrilobular emphysematous changes. HILAR AND MEDIASTINAL STRUCTURES: No identified masses. No abnormal nodes. HEART AND VASCULAR STRUCTURES: No aortic aneurysm. No pericardial effusion. No cardiac devices. CORONARY ARTERY CALCIFICATIONS: Marked calcifications. UPPER ABDOMEN, THYROID, BONES, OTHER SOFT TISSUES: No significant findings. IMPRESSION: NO SUSPICIOUS NODULES OR MASSES. BACKGROUND OF CHRONIC CENTRILOBULAR EMPHYSEMATOUS JACK[place] GES. NO OTHER CLINICALLY SIGNIFICANT/POTENTIALLY CLINICALLY SIGNIFICANT FINDINGS LUNGRADS: LUNGRADS: 1 NEGATIVE. NO NODULES, OR DEFINITELY BENIGN NODULES MODIFIER: NONE RECOMMENDATION: Continue annual screening with LDCT in 12 months. COMMENT: CRITERIA: No lung nodules. Nodules with specific calcifications: Complete, central, popcorn, concentric rings and fat containin g nodules. TECHNICAL DOCUMENTATION: JOB ID: [id number] Quality ID # [id number]: Final reports with documentation of one or more dose reduction techniques (e.g., Au tomated exposure control, adjustment of the mA and/or kV according to patient size, use of iterative reconstruction technique) 2010 [facility] Reading location - IP/workstation name: [email or web address]
== END ==
LOC: RAD 13:08
PROVIDERS: ATTEND Internal Medicine Pulmonary Disease
DX: Z87.891 Personal history of nicotine dependence (principal)
CPT/HCPCS: 99284; G0297

== ENCOUNTER → 2020-04-29 | Outpatient (CLI) | payer OTHER ==
[2020-04-29 12:50] LABS: ALBUMIN 3.6 g/dL (3.5-5.0); ALKALINE PHOSPHATASE 78 U/L (38-126); ANION GAP 5 (5-19); ASPARTATE AMINO TRANSFERASE 22 U/L (14-36); BILIRUBIN,DIRECT 0.2 mg/dL (0.0-0.4); BILIRUBIN,TOTAL 0.4 mg/dL (0.2-1.3); BLOOD UREA NITROGEN 25 mg/dL (7-20); CALCIUM 9.3 mg/dL (8.4-10.2); CARBON DIOXIDE 32 mmol/L (22-30); CHLORIDE 102 mmol/L (98-107); CHOLESTEROL 83.35 mg/dL (0-200); GLUCOSE 94 mg/dL (75-110); POTASSIUM 4.5 mmol/L (3.6-5.0); TOTAL PROTEIN 5.9 g/dL (6.3-8.2); TRIGLYCERIDES 86 mg/dL (<150)
[2020-04-29 13:08] LABS: DIRECT LDL < 30 mg/dL (<100)
== END ==
LOC: OD 11:30
PROVIDERS: ATTEND Physician Assistant
DX: E78.2 Mixed hyperlipidemia (principal); I10 Essential (primary) hypertension; Z79.899 Other long term (current) drug therapy
CPT/HCPCS: 36415; 80048; 80061; 80076

== ENCOUNTER → 2020-05-19 | Outpatient (CLI) | payer OTHER ==
[2020-05-19 13:30] LABS: ANION GAP 10 (5-19); BLOOD UREA NITROGEN 29 mg/dL (7-20); CALCIUM 9.9 mg/dL (8.4-10.2); CARBON DIOXIDE 30 mmol/L (22-30); CHLORIDE 100 mmol/L (98-107); GLUCOSE 102 mg/dL (75-110); POTASSIUM 4.6 mmol/L (3.6-5.0)
== END ==
LOC: OD 12:37
PROVIDERS: ATTEND Physician Assistant
DX: I10 Essential (primary) hypertension (principal); E55.9 Vitamin D deficiency, unspecified; Z79.899 Other long term (current) drug therapy
CPT/HCPCS: 36415; 80048; 82306